=== PATIENT | male | born 1960 | race Caucasian/White ===

== ENCOUNTER 2020-06-15 09:32 | Day surgery (SDC) | payer BC, SELFPAY ==
[2020-06-15] VITALS (7 sets, daily range): BP systolic 105–117; BP diastolic 75–87; PULSE 81–100; RESP 16; TEMP 36.1–37.1; O2SAT 93–96; BMI 24.3
[2020-06-15] MEDS: Lactated Ringers 1,000 ML 100 ML IV (10:03)
--- NOTE | 2020-06-15 10:31 | HP.PCM_ITS ---
History of Present Illness Date of Admission: 06/15/20 The patient is a 59 year old M who presents for screening colonoscopy. He has never had a colonoscopy. Past Medical/Surgical History - Planned Operation Planned Operative Procedure/s: colonoscopy Date of Operative Procedure: 06/15/20 Permit Signed: No S.O.S: No Is This Patient Having a Total Joint: No - Previous Hospitalizations/Surgeries HX Hospitalizations: No HX of Surgeries: abcess buttock, incision /drainage/local. wisdom teeth Any Problems With Anesthesia: No You/Your Family Experience Fever (Hyperthermia) With Anes: No Cholinesterase deficiency: No - Cardiovascular Hx Chest Pain within Last 2 months: No Hx of Irregular Heartbeat and/or Afib: No Hx Heart Attack: No Hx Congestive Heart Failure: No Hx Rheumatic Fever: No Hx Hypertension: Yes - states controlled with med Hx Internal Defibrillator: No Hx Pacemaker: No Hx Cardiac Catheterization: No Hx Cardiac Surgery/Stents/Etc.: No Hx Stress Test: No HX Edema: No Hx Pain in Legs when Walking/Leg Cramps: No - Respiratory Chronic Cough: No HX of Shortness of Breath: No - denies Hoarseness: No Hx Chronic Obstructive Pulmonary Disease (COPD): No Hx Asthma: No Hx Emphysema: No Hx Sleep Apnea: No Hx Oxygen Use at Home: No Hx Respiratory Tract Infection/Cold (presently): No Do You Snore Loudly (louder than talking or can be heard): Yes Do You Often Feel Tired/ Fatigued/ Sleepy Dring Daytime?: No Has Anyone Observed You Stop Breathing During Sleep?: No Result (for STOP score): Positive Hx Smoking: Yes - quit age 33 Smoking Status: Former smoker - Gastrointestinal Hx Gastroesophageal Reflux: Yes Controlled With Meds: Yes - otc,antacids as needed Hx Gastrointestinal Disorders: No Hx Gastrointestinal Bleed: No Hx Ulcer: No Hx Hiatal Hernia: No Difficulty Chewing/Swallowing: No Recent Onset of Swallowing Problems: No Special diet followed at home: No Hx Unplanned Weight Loss of 20#: No HX Unplanned Weight Gain of 20#: No - Neurological Hx Seizures: No HX Syncope/Blackout Spells/Unconsciousness: No Hx CVA/Stroke: No Hx Transient Ischemic Attacks (TIA): No Hx Multiple Sclerosis: No Hx Parkinson's Disease: No Hx Head/Neck Injury: No Hx Headaches: Yes - occas Hx Back Injury/Pain: Yes - occas lower back pain Recent Onset of Speech Difficulty: No Restless Legs: No Does patient have nerve stimulator: No - Blood Disorder Hx Leukemia: No Bleeding Tendencies: No Hx Deep Vein Thrombosis: No Hx High Cholesterol: No Blood Transmitted Disease: No Hx Hepatitis: No Hx Cirrhosis: No Hx Anemia: No Hx Blood Disorders: No - Genitourinary Hx Renal Disease: No - Musculoskeletal Hx Arthritis: No Hx Rheumatoid Arthritis: No Hx Gout: No Recent Onset of an Orthopedic Problem: No - Endocrine Hx Diabetes: No Thyroid Disease: No Hx Steroid Therapy: No - Psycho/Social Hx Substance Use: No Hx Alcohol Use: Yes - 1 drink/month Hx Anxiety: No Hx Depression: No Mental Illness: No Hx Dementia: No - Miscellaneous Hx Cancer: No Recent Exposure to Contagious Disease: No Active MRSA: No Hx of C-Diff: No Any Loose Teeth: No - crown Allergies No Known Allergies Allergy (Verified 06/15/20 09:53) - Discharge Is Pt Admitted From a Longterm, or a Half-Way: No Who Could Help: After D/C, Where Do you Plan to Go: Return Home - Physical Exam Vitals/I&O's: Vital Signs Temp Pulse Resp BP Pulse Ox 97.0 F L 100 16 115/79 96 06/15/20 09:53 06/15/20 09:53 06/15/20 09:53 06/15/20 09:53 06/15/20 09:53 Oxygen Delivery Method Room Air Weight: 184 lb 11.958 oz Body Mass Index (BMI) 24.3 General: Alert, Oriented x3 Lungs: Clear to auscultation Cardiovascular: Regular rate, Regular Rhythm, No murmurs Abdomen: Bowel Sounds Present, Soft, Non Tender, Non-Distended Current Medications Lactated Ringer's () 1,000 mls @ 100 mls/hr IV .Q10H DEN Last Admin: 06/15/20 10:03 Dose: 100 mls/hr Documented by: Assessment/Plan Assessment screening colonoscopy Plan: Colonoscopy Surgery Risks - Colonoscopy Risks Include but are not Limited To: Risks include but are not limited to: Bleeding, perforation requiring further surgery, inability to complete colonoscopy requiring barium enema.
--- NOTE | 2020-06-15 10:57 | OP.COLON_ITS ---
Patient Name: Je Gage Procedure Date: 06/15/2020 10:35 AM Date of : 1960 Age: 59 Procedure: Colonoscopy Indications: Screening for colorectal malignant neoplasm Providers: Bam Richter MD Referring MD: Trang Borden Medicines: See the Anesthesia note for documentation of the administered medications Patient Profile: This is a 59 year old male. Refer to note in patient chart for documentation of history and physical. Last Colonoscopy: none. The patient's first colonoscopy is today. Complications: No immediate complications. Procedure: Pre-Anesthesia Assessment: - Prior to the procedure, a History and Physical was performed, and patient medications and allergies were reviewed. The patient's tolerance of previous anesthesia was also reviewed. The risks and benefits of the procedure and the sedation options and risks were discussed with the patient. All questions were answered, and informed consent was obtained. Prior Anticoagulants: The patient has taken no previous anticoagulant or antiplatelet agents. ASA Grade Assessment: II - A patient with mild systemic disease. After reviewing the risks and benefits, the patient was deemed in satisfactory condition to undergo the procedure. After I obtained informed consent, the scope was passed under direct vision. Throughout the procedure, the patient's blood pressure, pulse, and oxygen saturations were monitored continuously. The colonoscope was introduced through the anus and advanced to the cecum, identified by appendiceal orifice and ileocecal valve. The colonoscopy was performed without difficulty. The patient tolerated the procedure well. The quality of the bowel preparation was good. Scope In: 10:42:09 AM Scope Out: 10:54:09 AM Total Procedure Duration Time 0 hours 12 minutes 0 seconds Findings: A few small-mouthed diverticula were found in the sigmoid colon. No biopsies or other specimens were collected for this exam. The exam was otherwise without abnormality on direct and retroflexion views. Impression: - Diverticulosis in the sigmoid colon. No specimens collected. - The examination was otherwise normal on direct and retroflexion views. Recommendation: - Discharge patient to home. - Resume previous diet. - Continue present medications. - Repeat colonoscopy in 10 years for screening purposes. - Return to primary care physician (date not yet determined). Procedure Code(s): --- Professional --- 19903, Colonoscopy, flexible; diagnostic, including collection of specimen(s) by brushing or washing, when performed (separate procedure) Diagnosis Code(s): --- Professional --- Z12.11, Encounter for screening for malignant neoplasm of colon K57.30, Diverticulosis of large intestine without perforation or abscess without bleeding CPT copyright 2017 [employer]. All rights reserved. The codes documented in this report are preliminary and upon kettle chipper review may be revised to meet current compliance requirements. MD Bam Villeda MD 06/15/2020 10:57:19 AM This report has been signed electronically. Number of Addenda: 0 Note Initiated On: 06/15/2020 10:35 AM
--- NOTE | 2020-06-15 10:58 | OP.CCLET_ITS ---
06/15/2020 [facility] Re : Colonoscopy procedure for Je Borden This procedure was performed on Monday, June 15, 2020. My impressions and recommendations are as follows: Impressions : - Diverticulosis in the sigmoid colon. No specimens collected. - The examination was otherwise normal on direct and retroflexion views. Recommendations : - Discharge patient to home. - Resume previous diet. - Continue present medications. - Repeat colonoscopy in 10 years for screening purposes. - Return to primary care physician (date not yet determined). My findings are described in the full procedure note, which is enclosed. If I can be of further assistance, please feel free to contact me at Doctor phone number(s): , Fax: [phone], Work: . Sincerely, MD Bam Villeda MD 06/15/2020 10:57:19 AM This report has been signed electronically.
== END 2020-06-15 12:00 | disposition home or self-care (01) ==
LOC: EN 09:35 → AC 09:36
PROVIDERS: Anesthesiology; PCP Family Medicine; Referring Provider Family Medicine; Visit Provider Surgery
PROC: 0DJD8ZZ Inspection of Lower Intestinal Tract, Via Natural or Artificial Opening Endoscopic (ICD-10-PCS; CPT 45378; principal; 2020-06-15 10:25)
DX: Z12.11 Encounter for screening for malignant neoplasm of colon (principal); Z11.59 Encounter for screening for other viral diseases; I10 Essential (primary) hypertension; Z87.891 Personal history of nicotine dependence; K57.30 Diverticulosis of large intestine without perforation or abscess without bleeding
CPT/HCPCS: 45378; 87635; C9803; J7120; J2405; U0003

== ENCOUNTER 2021-09-11 19:46 | Emergency (ER) | payer OTHER, BC, SELFPAY ==
[2021-09-11 19:47] VITALS: BP 172/98; PULSE 79; RESP 8; TEMP 36.8; O2SAT 98; BMI 26.1
--- NOTE | 2021-09-11 20:31 | EDS_ITS ---
HPI History of Present Illness Chief Complaint: Laceration Detail of Chief Complaint: Right external posterior ear laceration Informant: patient Onset/Context/Timing Onset: Today and Hours Current Severity: Mild Maximum Severity: Mild Associated Symptoms Associated Symptoms: Negative for Parasthesias, Weakness, Loss of function, I nability to ambulate, Loss of consciousness and Amnesia Narrative Narrative: Right external, posterior laceration from an injury that occurred at work. Last tetanus greater than 10 years ago. 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 This occurred within the last hour. No other injuries. Tetanus Immunization: >10 years Prior similar symptoms: No PFSH PFSH Home Medications cetirizine 10 mg PO DAILY 06/05/20 [History Last Taken Unknown] losartan 100 mg PO DAILY 06/05/20 [History Last Taken 06/15/20] [id number] K-lycop 1 ea PO DAILY 06/05/20 [History Last Taken Unknown] Allergy/AdvReac Type Severity Reaction Status Date / Time No Known Allergies Allergy Verified 09/11/21 19:49 Social History Smoking Status: Former smoker ROS ROS ED ROS Narrative Denies recent illness. Review of Systems ROS Unobtainable: Denies due to encephalopathy Constitutional Constitutional ED: Denies fever(s) Eyes Eyes: Denies change in vision ENT ENT ED: Denies ear pain Cardiovascular Cardiovascular: Denies chest pain Respiratory/Chest Respiratory/Chest: Denies dyspnea Gastrointestinal Gastrointestinal: Denies abdominal pain, diarrhea, nausea or vomiting Genitourinary Genitourinary ED: Denies dysuria Musculoskeletal Musculoskeletal: Denies myalgias Integumentary Denies rash Neurologic Neurologic: Denies headache(s) Psychiatric Psychiatric: Denies depression Endocrine Endocrinology: Denies polyuria Hematologic/Lymphatic Hematologic/Lymphatic: Denies easy bruising Allergic/Immunologic Allergic/Immunologic ED: Denies urticaria EXAM Physical Exam Narrative Exam Narrative: 10-year-old male no acute distress vital signs stable afebrile. H EENT exam unremarkable except superficial laceration right posterior ear approximately 2 to 3 inches in length. Mild oozing of blood. No involvement of the cartilage. Cleaned and closed using Dermabond. Patient tolerated procedure well. Otherwise exam normal. Lungs are clear. Heart regular rate and rhythm. Const Vital Signs: 09/11/21 19:47 Temperature 98.2 F Temperature Source Temporal Pulse Rate 79 Respiratory Rate 8 L Blood Pressure 172/98 H Blood Pressure Mean 122 Pulse Ox 98 Oxygen Delivery Method Room Air Positive well nourished and well developed; Negative for obese, cachectic, contractures or unkempt General Appearance ED: well developed and NAD; Negative for unkempt, cachectic or contractures Nutritional Appearance: Negative for cachectic or obese HEENT HEENT Narrative: Right lateral posterior ear with superficial laceration of 2 to 3 inches. Dermabond closure worked well. trauma and tenderness; Negative for atraumatic Eyes PERRL and EOMs intact bilaterally Neck full ROM General: Negative for tenderness Chest Wall inspection of chest normal and palpation of chest normal Resp normal respiratory effort and clear to auscultation bilaterally Auscultation: Negative for rales, rhonchi or wheezes Cardio regular rhythm, S1 normal heart sound, S2 normal heart sound and no murmurs Rate: regular rate GI normal to inspection, nondistended, normoactive bowel sounds, non-tender, non- distended and no masses Auscultation: normoactive bowel sounds Palpation: soft; Negative for tender Back/Spine normal to inspection Extremity normal to inspection and full ROM General Extremety ED: Negative for deformity, edema or tenderness General Extremity: Negative for deformity or edema Neuro oriented x3 Sensorium / Orientation: alert, oriented to person, oriented to place, oriented to time and orientation impaired Motor Exam: strength 5/5 throughout Psych mental status grossly normal and thought process normal Appearance: Negative for unkempt Mood & Affect: Negative for depressed or tearful Skin no rashes or lesions noted and No no wounds Wounds: wounds noted PROC Procedures Lacerations Right ear laceration: Length: 2.5 in Depth: Skin Shape: Linear Prep: Sterile Conditions Laceration repair: Wound explored Comment: Closed using Dermabond. Wound was cleaned prior to that. MDM MDM MDM Narrative Medical decision making narrative: Worker's Comp. injury right ear. Superficial laceration. Dermabond closure. Tetanus updated. Discharge Plan Triage Chief Complaint: Laceration ED Provider: Theo Mai Dx/Rx/DC Orders Clinical Impression: Encounter related to worker's compensation claim, Laceration of ear, right, simple Instructions: ED Laceration, Face: Skin Glue Prescriptions: No Action cetirizine 10 MG tablet 10 mg PO DAILY RF: 0 losartan 100 MG tablet 100 mg PO DAILY RF: 0 [id number]-[id number]-[id number]-vit K-lycop 1 EACH tablet 1 ea PO DAILY RF: 0 Primary Care Provider: Trang Borden Referrals: [facility] [GROUP OF PHYSICIANS] - As Needed Trang Borden, KELLYC [Primary Care Provider] - Activity Restrictions/Additional Instructions: Wound clean. The skin glue will come off on its own. Do not take it off earlier pick at it. Any signs of infection such as swelling, pus or redness return. Your tetanus is up-to-date for the next 10 years. Disposition Disposition: Home, Self Care
[2021-09-11] MEDS: Diphth,Pertuss(Acell),Tet Vac 0.5 ML Vial IM (20:53)
== END 2021-09-11 21:20 | disposition home or self-care (01) ==
LOC: ED 20:54
PROVIDERS: Emergency Provider Emergency Medicine; PCP Family Medicine; Visit Provider Emergency Medicine
DX: S01.311A Laceration without foreign body of right ear, initial encounter (principal); Z87.891 Personal history of nicotine dependence; W22.8XXA Striking against or struck by other objects, initial encounter; Y93.9 Activity, unspecified; Y92.9 Unspecified place or not applicable
CPT/HCPCS: 12014; 90471; 90715; 99283

== ENCOUNTER 2024-08-12 00:08 | Inpatient (IN) | payer BC, SELFPAY ==
[2024-08-12] VITALS (21 sets, daily range): BP systolic 125–182; BP diastolic 68–85; PULSE 55–72; RESP 12–62; TEMP 36.3–37.1; O2SAT 95–99; BMI 24.2; BMI 24.4
--- NOTE | 2024-08-12 00:30 | RAD_ITS ---
EXAM: XR CHEST, 2 VIEWS CLINICAL INDICATION: chest pain TECHNIQUE: Frontal and lateral views of the chest. COMPARISON: No relevant prior studies available. FINDINGS: LUNGS AND PLEURAL SPACES: The lungs appear mildly hyperinflated with mildly prominent retrosternal clear space. No convincing infiltrate or effusion. No pneumothorax. HEART: Unremarkable. Cardiac silhouette not enlarged. MEDIASTINUM: Central airways and mediastinal contour are unremarkable. BONES/JOINTS: Unremarkable. No acute fracture. SOFT TISSUES: Unremarkable. VASCULATURE: Mild peripheral calcification of the aortic arch. RAD/Chest PA and Lateral IMPRESSION: Mild pulmonary hyperinflation. No convincing acute findings. Electronically Signed: Rohini Quick MD at 2:12 EST ,
--- NOTE | 2024-08-12 00:30 | EKG12_ITS ---
Test Reason : CP Blood Pressure : */* mmHG Vent. Rate : 65 BPM Atrial Rate : 65 BPM P-R Int : 158 ms QRS Dur : 84 ms QT Int : 382 ms P-R-T Axes : 57 46 69 degrees QTcB Int : 397 ms Normal sinus rhythm Nonspecific ST and T wave abnormality Abnormal ECG Confirmed by BRIGHT GALLAGHER, TYRA ([id number]), advertising editor STEPHANIE FRAZIER ([id number]) on 08/13/2024 8:05:24 AM Referred By: Confirmed By: TYRA NOVOA MD
[2024-08-12 00:37] LABS: Absolute Lymphocyte Count 1.71 X10^3/uL (0.83-4.51); Absolute Neutrophil Count 4.4 X10^3/uL (2.0-7.7); Basophil# 0.04 X10^3/uL; Basophil% 0.6 % (0-1); Eosinophil# 0.28 X10^3/uL; Eosinophils% 3.9 % (0-5); Hematocrit 41.5 % (40-54); Hemoglobin 14.1 g/dL (13.0-16.5); Lymphocyte # 1.71 X10^3/ul (0.83-4.51); Lymphocyte % 23.8 % (19-41); Mean Corpuscular Hgb 33.2 pg (27.0-32.0); Mean Corpuscular Volume 97.6 fL (80-94); Mean Platelet Vol. 9.4 fl (6.2-12.0); Monocyte# 0.74 X10^3/uL; Monocyte% 10.3 % (0-10); NRBC Flagged by Analyzer 0 % (0-5); Neutrophil # 4.36 X10^3/uL (2.7-7.7); Neutrophil % 60.7 % (47-70); Platelet Count 189 K/mm3 (150-450); RBC Distribution Width CV 13.4 % (11.6-14.6); RBC Distribution Width SD 47.6 fl (35.1-43.9); Red Blood Count 4.25 M/mm3 (4.6-6.2); White Blood Count 7.2 K/mm3 (4.4-11.0)
[2024-08-12 00:50] LABS: D-Dimer Quantitative (DVT/PE) 0.27 FEU/ug/m (0.27-0.49)
[2024-08-12 00:56] LABS: Anion Gap 5 (5-15); BUN 19 mg/dL (7-18); Calcium,Total 8.7 mg/dL (8.5-10.1); Chloride 109 mmol/L (98-107); Creatinine, Serum 0.79 mg/dL (0.70-1.30); EST Glomerular Filtration Rate 105 mL/min (>60); Est Glom Filt Rate - Afr Amer 127 mL/min (>60); Estimated Creatinine Clearance 109.57 ml/min; Glucose 163 mg/dL (74-106); Magnesium 2.1 mg/dL (1.6-2.6); Potassium 3.6 mmol/L (3.5-5.1); Sodium Level 143 mmol/L (136-145); Troponin-I HS 63 pg/mL (3.0-78.0)
--- NOTE | 2024-08-12 01:33 | EKG12_ITS ---
Test Reason : REPEAT Blood Pressure : */* mmHG Vent. Rate : 69 BPM Atrial Rate : 69 BPM P-R Int : 158 ms QRS Dur : 86 ms QT Int : 410 ms P-R-T Axes : 56 47 61 degrees QTcB Int : 439 ms Normal sinus rhythm Normal ECG Confirmed by BRIGHT GALLAGHER, TYRA ([id number]), news editor STEPHANIE FRAZIER ([id number]) on 08/13/2024 8:06:05 AM Referred By: Confirmed By: TYRA NOVOA MD
[2024-08-12] MEDS: Nitroglycerin Oint 1 INCH PACKET TD (01:40)
[2024-08-12] MEDS: Aspirin 81 MG TAB.CHEW 324 MG PO (01:41)
--- NOTE | 2024-08-12 02:05 | EX.ED.DYSGE1 ---
HPI History of Present Illness Chief Complaint: Chest Pain Informant: patient and spouse/S.O. Narrative Narrative: Patient is a 63-year-old male with past medical history of hypertension. He states he was at home this evening around 630 when he noticed a chest pressure that encompassed the entire anterior chest with slight radiation into the right arm. He states that there is no nausea vomiting or diaphoresis but did feel slightly short of breath with the pressure sensation. He states the symptoms would last a few minutes and then resolve. He states that he was able to go to bed but then awoke with recurring symptoms that he thought were a little more intense in nature and with concern this could be cardiac he presents for evaluation. [facility] Medical History Calabrese's palsy Prediabetes Hypertension Home Medications ?Medication ?Instructions ?Recorded ?Last Taken ?Type cetirizine 10 mg tablet 10 mg PO DAILY allergy sx 06/05/20 08/12/24 History amlodipine 5 mg tablet 5 mg PO DAILY 08/12/24 08/12/24 History cholecalciferol (vitamin D3) 50 50 mcg PO DAILY 08/12/24 Unknown History mcg (2,000 unit) capsule (D3-2000) inulin-sorbitol 2 gram chewable tab PO 08/12/24 Unknown History tablet (Fiber Supplement (inulin)) omeprazole 40 mg capsule,delayed 40 mg PO DAILY 08/12/24 08/12/24 History release Allergy/AdvReac Type Severity Reaction Status Date / Time No Known Allergies Allergy Verified 08/12/24 00:15 Family History Other CVA (cerebral vascular accident) Social History Smoking Status: Former smoker ROS ROS ED Constitutional Constitutional ED: Denies chills or fever(s) Eyes Eyes: Denies blurry vision, change in vision or diplopia ENT ENT ED: Denies sore throat Cardiovascular Cardiovascular: Reports chest pain; Denies palpitations or racing heartbeat Respiratory/Chest Respiratory/Chest: Reports dyspnea; Denies cough Gastrointestinal Gastrointestinal: Denies abdominal pain, diarrhea, nausea or vomiting Genitourinary Genitourinary ED: Denies dysuria Musculoskeletal Musculoskeletal: Denies back pain Integumentary Denies rash Neurologic Neurologic: Denies headache(s) Hematologic/Lymphatic Hematologic/Lymphatic: Denies easy bleeding or easy bruising EXAM Physical Exam Const Vital Signs: 08/12/24 00:09 08/12/24 00:16 08/12/24 01:09 Temperature 98.8 F Temperature Source Temporal Pulse Rate 71 65 Respiratory Rate 14 14 Respiratory Effort Short of Breath Blood Pressure 182/68 H 136/74 H Blood Pressure Mean 106 94 Pulse Ox 97 98 Oxygen Delivery Method Room Air Room Air 08/12/24 01:40 08/12/24 02:00 08/12/24 03:00 Temperature Temperature Source Pulse Rate 65 59 L Respiratory Rate 12 13 Respiratory Effort Blood Pressure 146/77 H 137/73 H 134/71 H Blood Pressure Mean 94 92 Pulse Ox 97 96 Oxygen Delivery Method Room Air Room Air Positive well nourished and well developed General Appearance ED: well developed; Negative for pallor HEENT HEENT Narrative: Normocephalic atraumatic Eyes PERRL and EOMs intact bilaterally General Eye ED: Negative for scleral icterus Neck supple and no JVD Chest Wall palpation of chest normal Resp normal respiratory effort and clear to auscultation bilaterally Cardio regular rate and regular rhythm Rate: other Other Details: Heart is regular rate and rhythm without murmurs rubs or gallop Radial and carotid pulses are equal and symmetric No carotid bruit noted GI normal to inspection, nondistended, normoactive bowel sounds, non-tender, non-distended and no masses GI Narrative: No voluntary guarding or rigidity or pulsatile mass Auscultation: normoactive bowel sounds Palpation: soft Extremity normal to inspection Extremity Narrative: No asymmetric edema no pitting edema negative Homans' sign bilaterally Neuro oriented x3, CN's II-XII intact bilaterally and no sensory deficits noted Sensorium / Orientation: alert Motor Exam: strength 5/5 throughout Psych mental status grossly normal Skin no rashes or lesions noted and no wounds General Skin Exam: Negative for jaundice or pallor MDM MDM MDM Narrative Medical decision making narrative: Patient arrived to ER hypertensive but has a past medical history of this and otherwise vitals are stable. He reports chest pressure with slight radiation and therefore there is concern this could be acute coronary syndrome or cardiac dysrhythmia. He also reported a family history of blood clot and therefore there is concern that he may have a PE. There is also concern that he may have an infectious process such as pneumonia. Secondary to this a basic workup was obtained. The patient's chest x-ray revealed no signs of infection no pneumothorax or widened mediastinum to suggest dissection. Furthermore his D-dimer was normal going against PE or dissection. His initial troponin was 63 which is towards the upper limit of normal but his EKG did not show any obvious ischemic changes or dysrhythmia finding. The 2-hour troponin elevated to a value of 98. With the almost 30 point jump and his symptoms there is concern this is secondary to coronary artery disease as the elevated troponin cannot be blamed on accelerated hypertension PE or cardiac dysrhythmia. Secondary to this the case was discussed with die maker electronic Dr. Slaughter. The patient was given aspirin and placed on a nitroglycerin topical ointment. With this he only had 1 bout of short-lived chest discomfort in the ER and is currently pain-free. Dr. Slaughter recommends patient be placed on a heparin drip and admitted to the medical service with continued troponin trending and potentially further workup with a stress test and/or heart cath. Secondary to this the hospitalist was contacted who agrees to accept the patient. Plan of care was discussed with the patient and they are agreeable to it and he is remained hemodynamically stable in ER and is therefore safe for admission History & Record Review Discussion w/independent historian: Patient and Significant other Lab Data Attestation: I reviewed the patient's lab results. Labs: Laboratory Results - last 24 hr 08/12/24 08/12/24 08/12/24 00:22 02:52 03:41 WBC 7.2 RBC 4.25 L Hgb 14.1 Hct 41.5 MCV 97.6 H MCH 33.2 H MCHC 34.0 RDW Std Deviation 47.6 H RDW Coeff of Leslie 13.4 Plt Count 189 MPV 9.4 Immature Gran % (Auto) 0.700 Neut % (Auto) 60.7 Lymph % (Auto) 23.8 Ida % (Auto) 10.3 H Eos % (Auto) 3.9 Baso % (Auto) 0.6 Absolute Neuts (auto) 4.4 Absolute Lymphs (auto) 1.71 Nucleated RBC % 0 PT 13.4 INR 1.0 APTT 27.9 D-Dimer Quant (PE/DVT) 0.27 Sodium 143 Potassium 3.6 Chloride 109 H Carbon Dioxide 28.0 Anion Gap 5 BUN 19 H Creatinine 0.79 Estim Creat Clear Calc 109.57 Est GFR (MDRD) Af Amer 127 Est GFR (MDRD) Non-Af 105 BUN/Creatinine Ratio 24.0 H Glucose 163 H Calcium 8.7 Magnesium 2.1 Troponin I High Sens 63 98 H Radiography Diagnostic Testing: Clinical Impression(s) from Imaging Studies Chest X-Ray 08/12/24 00:30 IMPRESSION: Mild pulmonary hyperinflation. No convincing acute findings. Electronically Signed: Rohini Quick MD at 2:12 EST Reading Location ID and State: [facility] / [place] Tel , Service support , 2 view chest x-ray as interpreted by the emergency medicine physician reveals no acute infiltrate pneumothorax or pleural effusion Management Discussion w/another healthcare provider: Hospitalist and Senior Quality Control Inspector Discharge Plan Dx/Rx/DC Orders Clinical Impression: NSTEMI, initial episode of care, Essential hypertension Disposition Disposition: Acute Care Hospital [facility] Discharge Date/Time: 08/12/24 04:07
[2024-08-12 03:24] LABS: Troponin-I HS 98 pg/mL (3.0-78.0)
--- NOTE | 2024-08-12 03:47 | HP.PCM.HOS_ITS ---
HPI - General General Date of Admission: 08/12/24 Date of Service: 08/12/24 Chief Complaint: Chest Pain. HPI Narrative LUKE GIMENEZ, is a 63 M with a past medical history of essential hypertension; on amlodipine, history of prediabetes, former tobacco abuse, positive family history of CVA in his mother and sister, history of Calabrese's palsy, history of sigmoid diverticulosis, history of screening colonoscopy (2019), history of laceration posterior to the Right external ear while at work (2021) and OA who presents to [facility] ER complaining of chest pain. Mr. Gimenez reports his symptoms began approximately 18:30 hours yesterday evening when he noticed chest pressure while he was out a local holiday event with high winds and moderate exertion when he suddenly developed chest pain that was pressure-like and went across his entire anterior chest wall and was ~6/10 at the worst with radiation into his Right arm that initially improved with rest but then remained persistent without activity so he finally decided to come in for further evaluation and treatment. When pressed he admitted to exertional chest pain that was previously mild and self-resolving sporadically over the past few months so he did not seek medical attention at that time. He denies associated fever, chills, nausea, vomiting, diaphoresis, recent illness, recent medication changes or a personal history of CAD - but he did admit to mild SOB. In the ER he was noted to have a normal initial troponin of 63 pg/mL followed by an upwardly trending second troponin of 98 pg/mL and then a third that tony to 151 pg/mL consistent with suspected NSTEMI and he was then admitted to the PCU for ongoing care for a stay that is expected to extend beyond 2 midnights. [facility] Medical History Calabrese's palsy Prediabetes Hypertension Home Medications ?Medication ?Instructions ?Recorded ?Last Taken ?Type cetirizine 10 mg tablet 10 mg PO DAILY allergy sx 06/05/20 08/11/24 History amlodipine 5 mg tablet 5 mg PO DAILY BP 08/12/24 08/11/24 History cholecalciferol (vitamin D3) 50 50 mcg PO DAILY supplement 08/12/24 08/11/24 History mcg (2,000 unit) capsule (D3-1999) inulin-sorbitol 2 gram chewable 1 tab PO DAILY PRN GI health 08/12/24 08/11/24 History tablet (Fiber Supplement (inulin)) omeprazole 40 mg capsule,delayed 40 mg PO DAILY 08/12/24 08/12/24 History release Allergy/AdvReac Type Severity Reaction Status Date / Time No Known Allergies Allergy Verified 08/12/24 00:15 Family History Other CVA (cerebral vascular accident) Social History Smoking Status: Former smoker ROS ROS Narrative Review of Systems: Constitutional: Patient denies fever or chills. Eyes: Patient denies changes in vision or discharge from eyes. ENT: Patient denies runny nose, sore throat or ear pain. Resp: Patient denies shortness of breath or cough. CV: Patient admits to chest pain but he denies diaphoresis, palpitations or heart racing. GI: Patient denies abdominal pain, nausea, vomiting, diarrhea or constipation. : Patient denies dysuria or hematuria. MSK: Patient denies arthralgias or myalgias. Skin: Patient denies rash, abscess or jaundice. Psych: Patient denies symptoms of uncontrolled depression or anxiety. Neuro: Patient denies headache, paresthesias or focal neurologic deficits. Allergy: Patient denies lip swelling, tongue swelling or urticaria. Hematology: Patient denies easy bleeding or easy bruisability. Endocrinology: Patient denies polyuria, polydipsia or polyphagia. 14 point review of systems otherwise negative except for positives noted above in HPI. Vital Signs Vital Signs Vital Signs: 08/12/24 00:09 08/12/24 00:16 08/12/24 01:09 Temperature 98.8 F Temperature Source Temporal Pulse Rate 71 65 Respiratory Rate 14 14 Respiratory Effort Short of Breath Blood Pressure 182/68 H 136/74 H Blood Pressure Mean 106 94 Pulse Ox 97 98 Oxygen Delivery Method Room Air Room Air 08/12/24 01:40 08/12/24 02:00 08/12/24 03:00 Temperature Temperature Source Pulse Rate 65 59 L Respiratory Rate 12 13 Respiratory Effort Blood Pressure 146/77 H 137/73 H 134/71 H Blood Pressure Mean 94 92 Pulse Ox 97 96 Oxygen Delivery Method Room Air Room Air Weight Weight: 183 lb 6.793 oz Body Mass Index (BMI) 24.2 Physical Exam Const alert, oriented x3, no apparent distress, average body habitus and healthy appearing General Appearance: cooperative HEENT normocephalic, head/scalp atraumatic, hearing grossly normal bilaterally and moist oral mucous membranes Eyes PERRL and EOMs intact bilaterally Neck no lymphadenopathy and supple Resp normal respiratory effort, no retractions, no use of accessory muscles and clear to auscultation bilaterally Cardio regular rate and regular rhythm GI normal to inspection, nondistended, normoactive bowel sounds, soft to palpation, non-tender and non-distended Extremity normal to inspection, full ROM and no clubbing, cyanosis or edema Skin Skin Narrative: Patient has no evidence of rash, abscess or jaundice. Neuro oriented x3, CN's II-XII intact bilaterally, moves all extremities and no focal motor deficits Sensorium / Orientation: awake, alert, oriented to person, oriented to place and oriented to time Speech: speech normal Psych affect normal Results Medical Records Data Attestation: I reviewed the patient's medical records Lab / Micro Data Attestation: I reviewed the patient's lab results. 08/12/24 04:49 08/12/24 04:49 Labs: Laboratory Results - last 24 hr 08/12/24 00:22: WBC 7.2, RBC 4.25 L, Hgb 14.1, Hct 41.5, MCV 97.6 H, MCH 33.2 H, MCHC 34.0, RDW Std Deviation 47.6 H, RDW Coeff of Leslie 13.4, Plt Count 189, MPV 9.4, Immature Gran % (Auto) 0.700, Neut % (Auto) 60.7, Lymph % (Auto) 23.8, [place] % (Auto) 10.3 H, Eos % (Auto) 3.9, Baso % (Auto) 0.6, Absolute Neuts (auto) 4.4, Absolute Lymphs (auto) 1.71, Nucleated RBC % 0, D-Dimer Quant (PE/DVT) 0.27, Sodium 143, Potassium 3.6, Chloride 109 H, Carbon Dioxide 28.0, Anion Gap 5, BUN 19 H, Creatinine 0.79, Estim Creat Clear Calc 109.57, Est GFR (MDRD) Af Amer 127, Est GFR (MDRD) Non-Af 105, BUN/Creatinine Ratio 24.0 H, Glucose 163 H, Calcium 8.7, Magnesium 2.1, Troponin I High Sens 63 08/12/24 02:52: Troponin I High Sens 98 H Imaging Radiology Impression Chest X-Ray 08/12/24 00:30 IMPRESSION: Mild pulmonary hyperinflation. No convincing acute findings. Electronically Signed: Rohini Quick MD at 2:12 EST , Assessment & Plan Assessment/Plan (1) NSTEMI, initial episode of care: (2) Essential hypertension: (3) Prediabetes: (4) Tobacco abuse, in remission: (5) History of Calabrese's palsy: PLAN: Plan 1. Non-ST elevation [place]; evidenced by initial normal troponin of 63 pg/mL followed by a second upward trending troponin of 98 pg/mL - Admit to PCU. Continue aspirin and IV heparin begun in the ER plus add Plavix, statin and low- dose metoprolol. Serialize troponin. Check echocardiogram to evaluate LVEF. Give Tylenol as needed for [id number] (level 1-5/10) pain or fever. Give morphine IV as needed for severe (level 6-10/10) pain. Give Zofran IV as needed nausea and vomiting. Finally, we will consult [facility] see this patient on rounds in a.m. for further recommendations regarding [facility] this admission without appreciated in advance. 2. Essential hypertension; on amlodipine - Resume amlodipine as previous plus start low-dose metoprolol. 3. History of prediabetes; with hyperglycemia of 163 mg/dL present on admission - Check hemoglobin A1c to confirm prediabetic status. ADA/cardiac diet to start after [facility]. 4. Former tobacco abuse - Noted. 5. History of Calabrese's palsy - Noted with no active signs of recurrence. 6. Positive family history of CVA in his mother and sister - Noted. 7. History of sigmoid diverticulosis - Noted. 8. History of screening colonoscopy (2019) - Noted with no pathologic findings other than sigmoid diverticulosis. Patient was recommended to follow-up in 10 years to maintain routine surveillance. 9. History of laceration posterior to the Right external ear while at work (2021) - Noted. 10. OA - Give Tylenol as needed. 11. DVT prophylaxis - Patient already started on IV heparin for #1. Total time: Approximately (but not less than) 55 minutes. Charges/Coding Visit Charges Inpatient E&M: 37641 Init Hosp L2
[2024-08-12] MEDS: Heparin Injection (Vial) 5,000 UNIT/ML VIAL 4000 UNIT IV (03:50)
[2024-08-12] MEDS: HEPARIN/D5w 25,000 UNITS 25,000 UNITS/250 ML IV.SOLN. 10 UNITS CONT INF (03:51)
[2024-08-12 04:01] LABS: Prothrombin Time (Protime)PT. 13.4 SECONDS (11.7-14.9)
[2024-08-12 04:02] LABS: Partial Thromboplast Time 27.9 Seconds (24.1-36.2)
--- NOTE | 2024-08-12 04:11 | ECHOD_ITS ---
Reason For Study: s/p [place] Procedure This was a 2D Doppler, Color Flow transthoracic echocardiogram. The study was technically difficult. Echo done post heart cath. Exam performed portable in patient room. Left Ventricle Normal LV size. The left ventricular ejection fraction is 55 %. No regional wall motion abnormalities noted. Right Ventricle Normal RV size. Normal systolic function. Atria Normal left atrium. Normal right atrium. Mitral Valve Normal mitral valve. Mild-Moderate (1-2+) eccentric mitral valve insufficiency. Tricuspid Valve Normal tricuspid valve. Aortic Valve Trisinus/trileaflet aortic valve. Pulmonic Valve Normal pulmonic valve. Great Vessels Normal aortic root. The pulmonary artery is normal size. Inferior vena cava collapse with respiration. Pericardium/Pleural No pericardial effusion. MMode/2D Measurements & Calculations LVIDd: 3.8 cm IVSd: 1.1 cm LAV(MOD-bp): 48.5 ml LVIDs: 2.8 cm LVPWd: 1.0 cm LAV(MOD-bp) Indexed: 23.4 ml/m2 RVDd: 3.7 cm FS: 26.9 % LAV(MOD-sp2): 49.3 ml LAV(MOD-sp4): 42.2 ml SV(MOD-sp4): 45.9 ml SV(sp4-el): 50.2 ml LVAd ap4: 35.8 cm2 LVLd ap4: 8.6 cm SI(MOD-sp4): 22.1 ml/m2 EDV(MOD-sp4): 119.5 ml EDV(sp4-el): 126.3 ml LVAs ap4: 26.2 cm2 LVLs ap4: 7.7 cm ESV(MOD-sp4): 73.6 ml ESV(sp4-el): 76.1 ml EF(MOD-sp4): 38.4 % EF(sp4-el): 39.7 % LA A4 area: 17.3 cm2 LA dimension(2D): 3.7 cm RA A4 area: 19.4 cm2 TAPSE: 1.5 cm Time Measurements MV dec time: 0.19 sec Doppler Measurements & Calculations MV E max matt: 75.0 cm/sec Lat Peak E' Matt: 11.4 cm/sec Med Peak E' Matt: 8.2 cm/sec MV A max matt: 56.2 cm/sec E/E' lat: 6.5 E/E' med: 9.1 MV E/A: 1.3 MV V2 max: 78.0 cm/sec MV P1/2t max matt: 78.6 cm/sec Ao V2 max: 91.8 cm/sec MV max P.4 mmHg MV P1/2t: 63.4 msec Ao max P.4 mmHg MV V2 mean: 38.8 cm/sec Ao V2 mean: 64.3 cm/sec MV mean P.75 mmHg MV dec slope: 362.7 cm/sec2 Ao mean P.9 mmHg MV V2 VTI: 30.0 cm MVA(P1/2t): 3.5 cm2 Ao V2 VTI: 23.2 cm AV (velocity ratio): 0.82 LV V1 max: 76.6 cm/sec PA V2 max: 67.8 cm/sec LV V1 max P.3 mmHg LV V1 mean P.3 mmHg LV V1 mean: 53.1 cm/sec LV V1 VTI: 19.0 cm ECHO/Echo Complete Interpretation Summary Normal LV size. The left ventricular ejection fraction is 55 %. No regional wall motion abnormalities noted. Mild-Moderate (1-2+) eccentric mitral valve insufficiency. Ordering Physician: Je Stewart Performed By: Stef Malloy RCS
[2024-08-12 04:56] LABS: Hematocrit 39.3 % (40-54); Hemoglobin 13.5 g/dL (13.0-16.5); Mean Corp Hgb Conc 34.4 g/dL (32-36); Mean Corpuscular Volume 96.1 fL (80-94); Mean Platelet Vol. 9.4 fl (6.2-12.0); Platelet Count 175 K/mm3 (150-450); RBC Distribution Width CV 13.3 % (11.6-14.6); RBC Distribution Width SD 47.1 fl (35.1-43.9); Red Blood Count 4.09 M/mm3 (4.6-6.2); White Blood Count 7.1 K/mm3 (4.4-11.0)
[2024-08-12] MEDS: Atorvastatin Calcium 80 MG Tablet PO (05:24)
[2024-08-12 05:44] LABS: ALB/GLOB Ratio 1.1 RATIO (0.9-2.4); AST(SGOT) 15 U/L (15-37); Alanine Aminotransfer ALT/SGPT 32 U/L (16-61); Albumin, Serum 3.2 g/dL (3.2-5.0); Alkaline Phosphatase 89 U/L (45-117); Anion Gap 6 (5-15); BUN 18 mg/dL (7-18); BUN/Creat Ratio 28.3 RATIO (10-20); Calcium,Total 8.5 mg/dL (8.5-10.1); Chloride 112 mmol/L (98-107); Cholesterol 156 mg/dL (200); Creatinine, Serum 0.64 mg/dL (0.70-1.30); EST Glomerular Filtration Rate 136 mL/min (>60); Est Glom Filt Rate - Afr Amer 164 mL/min (>60); Estimated Creatinine Clearance 135.25 ml/min; Globulin 2.9 g/dL (2.2-4.2); Glucose 133 mg/dL (74-106); High Density Lipoprotein 46 mg/dL; Potassium 3.6 mmol/L (3.5-5.1); Protein, Total 6.1 g/dL (6.4-8.2); Sodium Level 140 mmol/L (136-145); Triglycerides 77 mg/dL; Troponin-I HS 151 pg/mL (3.0-78.0); Very Low Density Lipoprotein 15 mg/dL (5-40)
--- NOTE | 2024-08-12 07:30 | PCM.CONS.C ---
Assessment & Plan Assessment/Plan (1) NSTEMI, initial episode of care: PLAN: He does have evidence of a non-ST elevation myocardial infarction. The plan will be for him to undergo a cardiac catheterization this morning and depending on the findings further recommendations will be made. There is benefits alternatives of been explained to him he understands and agrees to proceed. In the meantime he will be treated as follows: Aspirin, Toprol XL 25 mg a day, High intensity statin. Addendum: 10 AM. Cardiac catheterization demonstrated severe triple-vessel disease with significant calcification involving the LAD, right coronary artery, and circumflex artery. The LAD does not appear to have good distal target. After discussion with the business office manager it is felt that it may be prudent to transfer him to a tertiary care facility to see whether he can have rotablation to the right coronary artery and possibly the circumflex arterial system. Arrangements will be made for the above. (2) Essential hypertension: PLAN: He will continue on his current medication for his blood pressure. An echocardiogram be performed to assess his ventricular function. HPI Consult Data Date of Consult: 08/12/24 HPI Narrative HPI Narrative: LUKE GIMENEZ, is a 63 M who presents to the emergency room with chest discomfort which she describes as a heaviness which had been going on over the last week or so. It did appear with exertion and then he also had some with rest. He was concerned about this and so presented to the emergency room in the emergency room and EKG was done which did not demonstrate any changes but he cardiac enzymes did demonstrate abnormalities. He does have a history of hypertension, prediabetes, but no hyperlipidemia. He was admitted on intravenous heparin and aspirin cardiology was called for further evaluation and management. [facility] Medical History Calabrese's palsy Prediabetes Hypertension Home Medications ?Medication ?Instructions ?Recorded ?Last Taken ?Type cetirizine 10 mg tablet 10 mg PO DAILY allergy sx 06/05/20 08/11/24 History amlodipine 5 mg tablet 5 mg PO DAILY BP 08/12/24 08/11/24 History cholecalciferol (vitamin D3) 50 50 mcg PO DAILY supplement 08/12/24 08/11/24 History mcg (2,000 unit) capsule (D3-2000) inulin-sorbitol 2 gram chewable 1 tab PO DAILY PRN GI health 08/12/24 08/11/24 History tablet (Fiber Supplement (inulin)) omeprazole 40 mg capsule,delayed 40 mg PO DAILY 08/12/24 08/12/24 History release Allergy/AdvReac Type Severity Reaction Status Date / Time No Known Allergies Allergy Verified 08/12/24 00:15 Family History Other CVA (cerebral vascular accident) Social History Smoking Status: Former smoker ROS Constitutional Constitutional: Denies fever(s) or weight loss Eyes Eyes: Reports systems reviewed and no addt'l complaints, except as documented ENT HEENT: Reports systems reviewed and no addt'l complaints, except as documented Cardiovascular Cardiovascular: Reports chest pain at rest and chest pain with activity; Denies dyspnea at rest, dyspnea on exertion, edema, palpitations or paroxysmal nocturnal dyspnea Respiratory/Chest Respiratory/Chest: Denies dyspnea on exertion, productive cough, shortness of breath at rest or shortness of breath with exertion Gastrointestinal Gastrointestinal: Denies change in bowel habits, nausea, vomiting or weight changes Genitourinary Genitourinary: Denies difficulty urinating Musculoskeletal Musculoskeletal: Denies joint stiffness or muscle weakness Integumentary Integumentary: Denies lesions Neurologic Neurologic: Denies dizziness or syncope Psychiatric Psychiatric: Denies anxiety Endocrine Endocrinology: Denies excessive sweating or fatigue Hematologic/Lymphatic Hematologic/Lymphatic: Denies anemia Allergic/Immunologic Allergic/Immunologic: Denies seasonal rhinorrhea Physical Exam Const alert, oriented x3 and no apparent distress General Appearance: cooperative HEENT hearing grossly normal bilaterally Head and Scalp: atraumatic Eyes EOMs intact bilaterally Neck General: normal visual inspection Chest inspection of chest normal and palpation of chest normal Resp normal respiratory effort Auscultation: clear to auscultation bilaterally Cardio regular rate, regular rhythm, S1 normal heart sound and S2 normal heart sound Jugular Venous Distention: JVD GI normal to inspection, nondistended, normoactive bowel sounds Extremity normal capillary refill and no pedal edema Peripheral Pulses: Yes pulses 2+ throughout and femoral pulses present Skin no rashes or lesions noted Neuro oriented x3 and CN's II-XII intact bilaterally Psych Appearance: grossly normal and appropriate Risk Stratification Risk Stratification Applicable: Yes Age >/= 65: No >/= 3 CAD Risk Factors (HTN, HLD, DM, family hx of CAD, or current smoker): Yes Aspirin Use in the Past 7 Days: No Severe Angina (>/= episodes in 24 hours): No EKG ST Changes >/= 0.5mm: No Positive Cardiac Marker: Yes ONELIA Risk Stratification Score: 2 ONELIA % Risk: 8% Risk Objective Data Vital Signs: Vital Signs Temp Pulse Resp BP Pulse Ox O2 Del Method 98.1 F 59 L 16 140/83 H 98 Room Air 08/12/24 04:19 08/12/24 04:19 08/12/24 04:19 08/12/24 04:19 08/12/24 04:19 08/12/24 04:40 Oxygen Delivery Method Room Air Weight: 185 lb 3.013 oz Body Mass Index (BMI) 24.4 Lab / Micro Data 08/12/24 04:49 08/12/24 04:49 Labs: Laboratory Results - last 24 hr 08/12/24 00:22: WBC 7.2, RBC 4.25 L, Hgb 14.1, Hct 41.5, MCV 97.6 H, MCH 33.2 H, MCHC 34.0, RDW Std Deviation 47.6 H, RDW Coeff of Leslie 13.4, Plt Count 189, MPV 9.4, Immature Gran % (Auto) 0.700, Neut % (Auto) 60.7, Lymph % (Auto) 23.8, [place] % (Auto) 10.3 H, Eos % (Auto) 3.9, Baso % (Auto) 0.6, Absolute Neuts (auto) 4.4, Absolute Lymphs (auto) 1.71, Nucleated RBC % 0, D-Dimer Quant (PE/DVT) 0.27, Sodium 143, Potassium 3.6, Chloride 109 H, Carbon Dioxide 28.0, Anion Gap 5, BUN 19 H, Creatinine 0.79, Estim Creat Clear Calc 109.57, Est GFR (MDRD) Af Amer 127, Est GFR (MDRD) Non-Af 105, BUN/Creatinine Ratio 24.0 H, Glucose 163 H, Calcium 8.7, Magnesium 2.1, Troponin I High Sens 63 08/12/24 02:52: Troponin I High Sens 98 H 08/12/24 03:41: PT 13.4, INR 1.0, APTT 27.9 08/12/24 04:49: WBC 7.1, RBC 4.09 L, Hgb 13.5, Hct 39.3 L, MCV 96.1 H, MCH 33.0 H, MCHC 34.4, RDW Std Deviation 47.1 H, RDW Coeff of Leslie 13.3, Plt Count 175, MPV 9.4, Sodium 140, Potassium 3.6, Chloride 112 H, Carbon Dioxide 23.0, Anion Gap 6, BUN 18, Creatinine 0.64 L, Estim Creat Clear Calc 135.25, Est GFR (MDRD) Af Amer 164, Est GFR (MDRD) Non-Af 136, BUN/Creatinine Ratio 28.3 H, Glucose 133 H, Calcium 8.5, Total Bilirubin 0.30, AST 15, ALT 32, Alkaline Phosphatase 89, Troponin I High Sens 151 H*, Total Protein 6.1 L, Albumin 3.2, Globulin 2.9, Albumin/Globulin Ratio 1.1, Triglycerides 77, Cholesterol 156, LDL Cholesterol 95, VLDL Cholesterol 15, HDL Cholesterol 46, TSH 2.100 Cardiology Labs/Tests 08/12/24 00:22: WBC 7.2, RBC 4.25 L, Hgb 14.1, Hct 41.5, MCV 97.6 H, MCH 33.2 H, MCHC 34.0, Plt Count 189, MPV 9.4, Immature Gran % (Auto) 0.700, Neut % (Auto) 60.7, Lymph % (Auto) 23.8, [place] % (Auto) 10.3 H, Eos % (Auto) 3.9, Baso % (Auto) 0.6, Absolute Neuts (auto) 4.4, Nucleated RBC % 0, D-Dimer Quant (PE/DVT) 0.27, Sodium 143, Potassium 3.6, Chloride 109 H, Carbon Dioxide 28.0, Anion Gap 5, BUN 19 H, Creatinine 0.79, Est GFR (MDRD) Af Amer 127, Est GFR (MDRD) Non-Af 105, BUN/Creatinine Ratio 24.0 H, Glucose 163 H, Calcium 8.7, Magnesium 2.1 08/12/24 03:41: PT 13.4, INR 1.0, APTT 27.9 08/12/24 04:49: WBC 7.1, RBC 4.09 L, Hgb 13.5, Hct 39.3 L, MCV 96.1 H, MCH 33.0 H, MCHC 34.4, Plt Count 175, MPV 9.4, Sodium 140, Potassium 3.6, Chloride 112 H, Carbon Dioxide 23.0, Anion Gap 6, BUN 18, Creatinine 0.64 L, Est GFR (MDRD) Af Amer 164, Est GFR (MDRD) Non-Af 136, BUN/Creatinine Ratio 28.3 H, Glucose 133 H, Calcium 8.5, Total Bilirubin 0.30, Triglycerides 77, Cholesterol 156, LDL Cholesterol 95, VLDL Cholesterol 15, HDL Cholesterol 46 Rhythm: EKG: ECHO: Stress Test: Cardiac Cath: PCI: CT Surgery: Holter monitor: EPS: PPM: CXR: Chest CT Scan: Radiography Diagnostic Testing: Radiology Impression Chest X-Ray 08/12/24 00:30 IMPRESSION: Mild pulmonary hyperinflation. No convincing acute findings. Electronically Signed: Rohini Quick MD at 2:12 EST ,
[2024-08-12] MEDS: Aspirin 81 MG TAB.CHEW PO (08:38)
[2024-08-12] MEDS: Loratadine 10 MG Tablet PO (08:39)
[2024-08-12] MEDS: Metoprolol Tartrate 25 MG Tablet 12.5 MG PO (08:39)
[2024-08-12] MEDS: amLODIPine 5 MG Tablet PO (08:40)
[2024-08-12] MEDS: Pantoprazole Sodium 40 MG Tablet PO (08:40)
[2024-08-12] MEDS: Clopidogrel Bisulfate 75 MG Tablet PO (08:40)
[2024-08-12] MEDS: Cholecalciferol (VIT D3) 25 MCG TABLET (1,000 UNITS) 50 MCG PO (08:40)
[2024-08-12 09:47] LABS: Hemoglobin A1c 5.8 % (3.8-5.6)
--- NOTE | 2024-08-12 10:08 | CASEMGMT ---
Insurance review for hospitals In-network with [place] [employer] insurance if transfer is recommended is as follows: [facility], [place], [facility], [place], [facility], [facility], [facility], [facility], [place], [facility]), and . Olga Orozco, Discharge Planning Asst.
--- NOTE | 2024-08-12 10:10 | CL.D_ITS ---
Patient Name: LUKE GIMENEZ Study Date: 08/12/2024 Performing: Ignacio Smith MD Ht: 73 inches 185.42 cm : 1960 Wt: 185.19 lbs 84 kg Age: 63 Gender: male BSA: 2.08 PROCEDURE(S) PERFORMED DC01-(22454)LHC/COR/LV CLINICAL PROFILE AND INDICATIONS Indications: New Onset Angina <= 2 months Heart Failure: None Stress/Imaging Stress/Image Study Performed: No CAD Presentations: Non-STEMI. Symptom onset Date/Time: 08/12/24 Time Not Available CONCLUSIONS Diffuse coronary artery disease with severe disease involving the left anterior descending artery and severe focal disease of the circumflex artery, and right coronary artery and a calcified vessel. Low normal ejection fraction. RECOMMENDATIONS Will recommend transfer to tertiary care facility for evaluation for possible PCI with rotablation to the circumflex artery and the right coronary artery. Surgical consultation should also be obtained. DESCRIPTION OF PROCEDURE The patient arrived to the procedure lab. The risks and benefits of the procedure as well as a full description of our services here and current unavailability of surgical backup were fully explained to the patient and/or their significant other prior to the catheterization. The Timeout was completed, verifying the correct patient and procedure. The patient's procedural site was prepped and draped in the usual fashion. Local anesthetic was given subcutaneously to right radial region with Lidocaine 2%. Using a modified Seldinger technique, arterial access was obtained via the right radial artery, a 6Fr sheath was inserted. Left Coronary Artery selective angiography was performed in multiple views using a 5 Fr. 4.0 [place] catheter. Right Coronary Artery selective angiography was then performed in multiple views using a 5 Fr. 4.0 [place] catheter. Left Ventriculography was performed in RÍOS projection using a 5 Fr. Pigtail catheter. LV to AO pullback pressures were then recorded.The arterial sheath was pulled and a TR Band was applied for hemostasis. 10cc of air CORONARY ANGIOGRAPHY DOMINANCE: Right Dominant LEFT HEART ASSESSMENT Left Ventricular Ejection Fraction: by LV Gram 50 % Anterior Hypokinesis - Mild Depressed Left Ventricular systolic function LEFT MAIN: Mild calcification LEFT ANTERIOR DESCENDING ARTERY: Medium size vessel with diffuse calcification moderate and mid 60 to 70% stenosis and distal long 70 to 80% stenosis. The first diagonal vessel is diffusely diseased in the second diagonal vessel is also moderately diffusely diseased. CIRCUMFLEX ARTERY: Nondominant vessel calcified with proximal focal 90% stenosis and a mildly diseased mid segment and a distal 90% stenosis. [id number] collaterals are seen filling the distal posterolateral vessel. RIGHT CORONARY ARTERY: Dominant vessel severely calcified with proximal eccentric complex 80 to 90% stenosis, mid 80% stenosis, mid to distal 50 to 60% stenosis, origin of the posterior descending artery with 60 to 70% stenosis and posterolateral vessel subtotally occluded. COLLATERAL FLOW: Collateral flow from Left to Right Collateral flow from Right to Left COMPLICATIONS No Complications PROCEDURE MEDICATIONS Fentanyl 50 mcg IV Versed 1 mg IV Versed 1 mg IV Oxygen: 2 L/min via nasal cannula Heparin given IA 08/12/2024 09:30:22 Verapamil 2.5mg, Ntg 100mcgs, 3000 units of Heparin given IA 08/12/2024 09:30:22 SUMMARY OF HEMODYNAMIC DATA Time AIR REST ECG 09:19:28 AO 138/63 (97) SA 09:47:06 LV 122/7, 13 09:56:22 LV 121/9, 16 09:56:30 LV 117/9, 15 09:57:04 LVp 117/10, 16 09:57:07 AOp 114/-22 (70) 09:57:14 Signed By Ignacio Smith MD On 08/12/2024 10:09:24 Ignacio Smith MD
--- NOTE | 2024-08-12 15:22 | PN.HOSP_ITS ---
Subjective Subjective Doing well, no issues overnight. Chest pain is improved though not completely resolved Objective Data Objective Data Vital Signs: Vital Signs Temp Pulse Resp BP Pulse Ox O2 Del Method 97.4 F L 64 16 140/85 H 97 Room Air 08/12/24 08:32 08/12/24 08:39 08/12/24 08:32 08/12/24 08:39 08/12/24 08:32 08/12/24 14:00 Oxygen Delivery Method Room Air Weight: 185 lb 3.013 oz Body Mass Index (BMI) 24.4 Intake & Output: Intake and Output for Last 24 Hours 08/11/24 08/12/24 08/13/24 03:59 03:59 03:59 Intake Total 686.5 / 686.5 Balance 686.5 / 686.5 Lab / Micro Data 08/12/24 04:49 08/12/24 04:49 Labs: Laboratory Results - last 24 hr 08/12/24 00:22: WBC 7.2, RBC 4.25 L, Hgb 14.1, Hct 41.5, MCV 97.6 H, MCH 33.2 H, MCHC 34.0, RDW Std Deviation 47.6 H, RDW Coeff of Leslie 13.4, Plt Count 189, MPV 9.4, Immature Gran % (Auto) 0.700, Neut % (Auto) 60.7, Lymph % (Auto) 23.8, Rapides % (Auto) 10.3 H, Eos % (Auto) 3.9, Baso % (Auto) 0.6, Absolute Neuts (auto) 4.4, Absolute Lymphs (auto) 1.71, Nucleated RBC % 0, D-Dimer Quant (PE/DVT) 0.27, Sodium 143, Potassium 3.6, Chloride 109 H, Carbon Dioxide 28.0, Anion Gap 5, BUN 19 H, Creatinine 0.79, Estim Creat Clear Calc 109.57, Est GFR (MDRD) Af Amer 127, Est GFR (MDRD) Non-Af 105, BUN/Creatinine Ratio 24.0 H, Glucose 163 H, H emoglobin A1c 5.8 H, Calcium 8.7, Magnesium 2.1, Troponin I High Sens 63 08/12/24 02:52: Troponin I High Sens 98 H 08/12/24 03:41: PT 13.4, INR 1.0, APTT 27.9 08/12/24 04:49: WBC 7.1, RBC 4.09 L, Hgb 13.5, Hct 39.3 L, MCV 96.1 H, MCH 33.0 H, MCHC 34.4, RDW Std Deviation 47.1 H, RDW Coeff of Leslie 13.3, Plt Count 175, MPV 9.4, Sodium 140, Potassium 3.6, Chloride 112 H, Carbon Dioxide 23.0, Anion Gap 6, BUN 18, Creatinine 0.64 L, Estim Creat Clear Calc 135.25, Est GFR (MDRD) Af Amer 164, Est GFR (MDRD) Non-Af 136, BUN/Creatinine Ratio 28.3 H, Glucose 133 H, Calcium 8.5, Total Bilirubin 0.30, AST 15, ALT 32, Alkaline Phosphatase 89, T roponin I High Sens 151 H*, Total Protein 6.1 L, Albumin 3.2, Globulin 2.9, Albumin/Globulin Ratio 1.1, Triglycerides 77, Cholesterol 156, LDL Cholesterol 95, VLDL Cholesterol 15, HDL Cholesterol 46, TSH 2.100 Radiography Diagnostic Testing: Radiology Impression Chest X-Ray 08/12/24 00:30 IMPRESSION: Mild pulmonary hyperinflation. No convincing acute findings. Electronically Signed: Rohini Quick MD at 2:12 EST Reading Location ID and State: [address] [place] [address] Tel , Service support , Echocardiogram 08/12/24 04:11 Interpretation Summary Normal LV size. The left ventricular ejection fraction is 55 %. No regional wall motion abnormalities noted. Mild-Moderate (1-2+) eccentric mitral valve insufficiency. Ordering Physician: Je Stewart Performed By: Stef Malloy RCS Physical Exam Narrative General: Alert, Oriented x3, Cooperative, No apparent distress HEENT: Atraumatic, PERRLA, EOMI, Normocephalic Oral: Moist Mucosa Neck: Supple, No JVD Lungs: Clear to auscultation, Normal air movement, No rhonchi, No wheeze, No rales Cardiovascular: Regular rate, Regular Rhythm, Normal S1, Normal S2, No murmurs Abdomen: Soft, Non Tender, Non-Distended, No Hepato-splenomegaly Extremities: No edema, Capillary Refill Less than 3 Seconds Skin: No rashes, No breakdown Musculoskeletal: No Tenderness to Palpation of Joints or Extremities Neurological: No focal neurological deficits, Motor Exam 5/5 strength throughout, Sensory exam intact to light touch and pain Psych/Mental Status: Normal Affect, Appropriate Assessment & Plan Assessment/Plan (1) NSTEMI, initial episode of care: (2) Essential hypertension: (3) Prediabetes: (4) Tobacco abuse, in remission: (5) History of Calabrese's palsy: PLAN: Plan 1. Non-STEMI/essential HTN ? Cardiac cath with triple-vessel disease, cardiology is assisting with transferring patient to be evaluated for possible bypass surgery ? Continue with medical management with Plavix, Lipitor, aspirin ? Echo with an EF of 55% ? Significant family history of vascular disease with strokes and heart attacks DVT: Heparin
[2024-08-12] MEDS: Metoprolol Tartrate 25 MG Tablet PO (21:19)
[2024-08-12] MEDS: Heparin Injection (Vial) 5,000 UNIT/ML VIAL 5000 UNIT SC (21:20)
[2024-08-13] VITALS (7 sets, daily range): BP systolic 104–131; BP diastolic 65–81; PULSE 59–65; RESP 16–18; TEMP 36.6–37; O2SAT 96–98
[2024-08-13] MEDS: Heparin Injection (Vial) 5,000 UNIT/ML VIAL 5000 UNIT SC (05:51)
[2024-08-13 06:29] LABS: Absolute Lymphocyte Count 1.46 X10^3/uL (0.83-4.51); Absolute Neutrophil Count 5.3 X10^3/uL (2.0-7.7); Basophil# 0.04 X10^3/uL; Basophil% 0.5 % (0-1); Eosinophil# 0.23 X10^3/uL; Hematocrit 44.4 % (40-54); Hemoglobin 15.1 g/dL (13.0-16.5); Lymphocyte # 1.46 X10^3/ul (0.83-4.51); Lymphocyte % 18.8 % (19-41); Mean Corpuscular Hgb 32.9 pg (27.0-32.0); Mean Corpuscular Volume 96.7 fL (80-94); Mean Platelet Vol. 9.4 fl (6.2-12.0); Monocyte# 0.74 X10^3/uL; Monocyte% 9.5 % (0-10); NRBC Flagged by Analyzer 0 % (0-5); Neutrophil # 5.25 X10^3/uL (2.7-7.7); Neutrophil % 67.7 % (47-70); Platelet Count 195 K/mm3 (150-450); RBC Distribution Width CV 13.3 % (11.6-14.6); RBC Distribution Width SD 47.3 fl (35.1-43.9); Red Blood Count 4.59 M/mm3 (4.6-6.2); White Blood Count 7.8 K/mm3 (4.4-11.0)
[2024-08-13 06:45] LABS: Anion Gap 4 (5-15); BUN 11 mg/dL (7-18); BUN/Creat Ratio 16.3 RATIO (10-20); Calcium,Total 8.8 mg/dL (8.5-10.1); Chloride 110 mmol/L (98-107); Creatinine, Serum 0.68 mg/dL (0.70-1.30); EST Glomerular Filtration Rate 126 mL/min (>60); Est Glom Filt Rate - Afr Amer 153 mL/min (>60); Estimated Creatinine Clearance 127.29 ml/min; Glucose 131 mg/dL (74-106); Potassium 3.8 mmol/L (3.5-5.1); Sodium Level 138 mmol/L (136-145)
[2024-08-13] MEDS: Metoprolol Tartrate 25 MG Tablet PO ×2 (08:52→21:27)
[2024-08-13] MEDS: Aspirin 81 MG TAB.CHEW PO (08:52)
[2024-08-13] MEDS: Cholecalciferol (VIT D3) 25 MCG TABLET (1,000 UNITS) 50 MCG PO (08:52)
[2024-08-13] MEDS: Loratadine 10 MG Tablet PO (08:52)
[2024-08-13] MEDS: Pantoprazole Sodium 40 MG Tablet PO (08:52)
[2024-08-13] MEDS: amLODIPine 5 MG Tablet PO (08:53)
--- NOTE | 2024-08-13 09:44 | PCM.PN.HOSP ---
Subjective Subjective Doing well, no issues overnight. Awaiting transfer Objective Data Objective Data Vital Signs: Vital Signs Temp Pulse Resp BP Pulse Ox O2 Del Method 98.3 F 64 16 130/69 H 98 Room Air 08/13/24 08:48 08/13/24 08:52 08/13/24 08:48 08/13/24 08:48 08/13/24 08:48 08/13/24 08:48 Oxygen Delivery Method Room Air Weight: 185 lb 3.013 oz Body Mass Index (BMI) 24.4 Intake & Output: Intake and Output for Last 24 Hours 08/12/24 08/13/24 08/14/24 03:59 03:59 03:59 Intake Total 986.5 / 986.5 Balance 986.5 / 986.5 Lab / Micro Data 08/13/24 05:26 08/13/24 05:26 Labs: Laboratory Results - last 24 hr 08/12/24 00:22: Hemoglobin A1c 5.8 H 08/13/24 05:26: WBC 7.8, RBC 4.59 L, Hgb 15.1, Hct 44.4, MCV 96.7 H, MCH 32.9 H, MCHC 34.0, RDW Std Deviation 47.3 H, RDW Coeff of Leslie 13.3, Plt Count 195, MPV 9.4, Immature Gran % (Auto) 0.500, Neut % (Auto) 67.7, Lymph % (Auto) 18.8 L, Cochran % (Auto) 9.5, Eos % (Auto) 3.0, Baso % (Auto) 0.5, Absolute Neuts (auto) 5.3, Absolute Lymphs (auto) 1.46, Nucleated RBC % 0, Sodium 138, Potassium 3.8, Chloride 110 H, Carbon Dioxide 24.0, Anion Gap 4 L, BUN 11, Creatinine 0.68 L, Estim Creat Clear Calc 127.29, Est GFR (MDRD) Af Amer 153, Est GFR (MDRD) Non-Af 126, BUN/Creatinine Ratio 16.3, Glucose 131 H, Calcium 8.8 Radiography Diagnostic Testing: Radiology Impression Echocardiogram 08/12/24 04:11 Interpretation Summary Normal LV size. The left ventricular ejection fraction is 55 %. No regional wall motion abnormalities noted. Mild-Moderate (1-2+) eccentric mitral valve insufficiency. Ordering Physician: Je Stewart Performed By: Stef Malloy RCS Physical Exam Narrative General: Alert, Oriented x3, Cooperative, No apparent distress HEENT: Atraumatic, PERRLA, EOMI, Normocephalic Oral: Moist Mucosa Neck: Supple, No JVD Lungs: Clear to auscultation, Normal air movement, No rhonchi, No wheeze, No rales Cardiovascular: Regular rate, Regular Rhythm, Normal S1, Normal S2, No murmurs Abdomen: Soft, Non Tender, Non-Distended, No Hepato-splenomegaly Extremities: No edema, Capillary Refill Less than 3 Seconds Skin: No rashes, No breakdown Musculoskeletal: No Tenderness to Palpation of Joints or Extremities Neurological: No focal neurological deficits, Motor Exam 5/5 strength throughout, Sensory exam intact to light touch and pain Psych/Mental Status: Normal Affect, Appropriate Assessment & Plan Assessment/Plan (1) NSTEMI, initial episode of care: (2) Essential hypertension: (3) Prediabetes: (4) Tobacco abuse, in remission: (5) History of Calabrese's palsy: PLAN: Plan 1. Non-STEMI/essential HTN ? Cardiac cath with triple-vessel disease, cardiology is assisting with transferring patient to be evaluated for possible bypass surgery ? Continue with medical management with Plavix, Lipitor, aspirin ? Echo with an EF of 55% ? Significant family history of vascular disease with strokes and heart attacks ? Awaiting transfer to [facility] for evaluation for open heart surgery DVT: Heparin Charges/Coding Visit Charges Inpatient E&M: 61266 Subs Hosp L2
--- NOTE | 2024-08-13 18:39 | DS.PCM_ITS ---
Providers Date of Admission: 08/12/24 Primary Care Physician: Trang Borden PA-C Consultations 08/12/24 04:11 Consult: Cardiology Routine Consulting Provider: Fenrie Slaughter Reason for Consult: Chest Pain EMERGENT Consult: No MD Notified: Yes Date Notified: 08/12/24 Time Notified: 03:49 Method of Notification: ED Physician Initiated Reason For Visit: NSTEMI Diagnosis Discharge Diagnosis (1) NSTEMI, initial episode of care: Status: Acute Code(s): I21.4 - Non-ST elevation (NSTEMI) myocardial infarction (2) Essential hypertension: Status: Acute Code(s): I10 - Essential (primary) hypertension (3) Prediabetes: Status: Acute Code(s): R73.03 - Prediabetes (4) Tobacco abuse, in remission: Status: Acute Code(s): F17.201 - Nicotine dependence, unspecified, in remission (5) History of Calabrese's palsy: Status: Acute Code(s): Z86.69 - Personal history of other diseases of the nervous system and sense organs Medications at Discharge Home Medications cetirizine 10 mg tablet 10 mg PO DAILY allergy sx 06/05/20 amlodipine 5 mg tablet 5 mg PO DAILY BP 08/12/24 cholecalciferol (vitamin D3) 50 mcg (2,000 unit) capsule (D3-2000) 50 mcg PO DAILY supplement 08/12/24 inulin-sorbitol 2 gram chewable tablet (Fiber Supplement (inulin)) 1 tab PO DAILY PRN GI health 08/12/24 omeprazole 40 mg capsule,delayed release 40 mg PO DAILY 08/12/24 Hospital Course Operations None Procedures 2-D Echocardiogram and Cardiac catheterization Summary of Care Provided Minutes Spent on Discharge: 36 Hospital Course: Per HPI: LUKE GIMENEZ, is a 63 M with a past medical history of essential hypertension; on amlodipine, history of prediabetes, former tobacco abuse, positive family history of CVA in his mother and sister, history of Calabrese's palsy, history of sigmoid diverticulosis, history of screening colonoscopy (2019), history of laceration posterior to the Right external ear while at work (2021) and OA who presents to [facility] ER complaining of chest pain. Mr. Gimenez reports his symptoms began approximately 18:30 hours yesterday evening when he noticed chest pressure while he was out a local holiday event with high winds and moderate exertion when he suddenly developed chest pain that was pressure-like and went across his entire anterior chest wall and was ~6/10 at the worst with radiation into his Right arm that initially improved with rest but then remained persistent without activity so he finally decided to come in for further evaluation and treatment. When pressed he admitted to exertional chest pain that was previously mild and self-resolving sporadically over the past few months so he did not seek medical attention at that time. He denies associated fever, chills, nausea, vomiting, diaphoresis, recent illness, recent medication changes or a personal history of CAD - but he did admit to mild SOB. In the ER he was noted to have a normal initial troponin of 63 pg/mL followed by an upwardly trending second troponin of 98 pg/mL and then a third that tony to 151 pg/mL consistent with suspected NSTEMI and he was then admitted to the PCU for ongoing care for a stay that is expected to extend beyond 2 midnights. Hospital Course: 1. Non-STEMI/essential HTN?63-year-old male presented to the hospital with intermittent chest pain. He was noted to have slightly increasing troponins with a peak to 151, however given his family history cardiology was consulted and elected to perform a cardiac catheterization. This demonstrated triple- vessel disease with multiple lesions in the 80 to 90% stenosis range. They recommended transfer to tertiary center for evaluation for open heart surgery. He was started on aspirin and Plavix as well as Lipitor. He also had an echo which demonstrated an EF of 55% but no obvious wall motion abnormality. I discussed the case with cardiology at [facility] who accepted him in transfer to [facility] and we received indication that he would be excepted this evening. I discussed with him and his family the plan for transfer today which they expressed understanding the risk benefits going and would like to go today. Will continue with Norvasc 5 mg daily as well as metoprolol 25 mg p.o. twice daily. Physical Exam Narrative General: Alert, Oriented x3, Cooperative, No apparent distress HEENT: Atraumatic, PERRLA, EOMI, Normocephalic Oral: Moist Mucosa Neck: Supple, No JVD Lungs: Clear to auscultation, Normal air movement, No rhonchi, No wheeze, No rales Cardiovascular: Regular rate, Regular Rhythm, Normal S1, Normal S2, No murmurs Abdomen: Soft, Non Tender, Non-Distended, No Hepato-splenomegaly Extremities: No edema, Capillary Refill Less than 3 Seconds Skin: No rashes, No breakdown Musculoskeletal: No Tenderness to Palpation of Joints or Extremities Neurological: No focal neurological deficits, Motor Exam 5/5 strength throughout, Sensory exam intact to light touch and pain Psych/Mental Status: Normal Affect, Appropriate Weight / BMI Weight Weight: 185 lb 3.013 oz Body Mass Index (BMI) 24.4 ABG / Lab / Microbiology Data 08/13/24 05:26 08/13/24 05:26 Laboratory: Laboratory Results - last 24 hr 08/13/24 05:26: WBC 7.8, RBC 4.59 L, Hgb 15.1, Hct 44.4, MCV 96.7 H, MCH 32.9 H, MCHC 34.0, RDW Std Deviation 47.3 H, RDW Coeff of Leslie 13.3, Plt Count 195, MPV 9.4, Immature Gran % (Auto) 0.500, Neut % (Auto) 67.7, Lymph % (Auto) 18.8 L, Mcmullen % (Auto) 9.5, Eos % (Auto) 3.0, Baso % (Auto) 0.5, Absolute Neuts (auto) 5.3, Absolute Lymphs (auto) 1.46, Nucleated RBC % 0, Sodium 138, Potassium 3.8, Chloride 110 H, Carbon Dioxide 24.0, Anion Gap 4 L, BUN 11, Creatinine 0.68 L, Estim Creat Clear Calc 127.29, Est GFR (MDRD) Af Amer 153, Est GFR (MDRD) Non-Af 126, BUN/Creatinine Ratio 16.3, Glucose 131 H, Calcium 8.8 D/C Instructions DC O2, CPAP, BIPAP Needs Additional Home O2 Discharge instructions: No DC home with Oxygen: No Meaningful Use Info Meaningful Use Meaningful Use Diagnoses (Choose all that apply): None applicable Ischemic Stroke Statin Dosing Therapy Reference: STATIN DOSE THERAPY REFERENCE: * Patients > 75 years receive moderate or high dose statin therapy. * Patients 75 years or YOUNGER should receive HIGH intensity statin dose unless contraindicated. You will be required to document reason for non-treatment if statin daily dose does not meet guidelines. HIGH DOSE STATIN THERAPY DAILY Atorvastatin > than or = to 40 mg Rosuvastatin > than or = to 20 mg Amlodipine + Atorvastatin > than or = to 2.5/40 mg Ezetimibe + Simvastatin 10/80 mg Simvastatin 80mg Discharge Plan Admission Admit Date/Time: 08/12/24 03:48 Attending Provider: Leo Smith Primary Care Provider: Trang Borden Consulting Providers: Fernie Slaughter; Luke Stewart Discharge Orders/Prescriptions Prescriptions: No Action cetirizine 10 MG tablet 10 mg PO DAILY amlodipine 5 mg tablet 5 mg PO DAILY omeprazole 40 mg capsule,delayed release(DR/EC) 40 mg PO DAILY cholecalciferol (vitamin D3) [D3-1999] 50 mcg (2,000 unit) capsule 50 mcg PO DAILY Fiber Supplement (inulin) 2 gram tablet,chewable 1 tab PO DAILY PRN Referrals / Follow Up: Trang Borden, PA-C [Primary Care Provider] - Charges/Coding Visit Charges Inpatient E&M: 85563 Disch Hosp >30min
[2024-08-13] MEDS: Atorvastatin Calcium 80 MG Tablet PO (21:27)
== END 2024-08-13 22:45 | disposition short-term general hospital (02) | DRG 282 ==
LOC: ED 03:52 → PCU 04:02
PROVIDERS: Admitting Provider Internal Medicine; Emergency Provider Emergency Medicine; PCP Family Medicine; Visit Provider Family Medicine
DX: I21.4 Non-ST elevation (NSTEMI) myocardial infarction (principal); F17.201 Nicotine dependence, unspecified, in remission; I10 Essential (primary) hypertension; K57.30 Diverticulosis of large intestine without perforation or abscess without bleeding; M19.90 Unspecified osteoarthritis, unspecified site; I25.10 Atherosclerotic heart disease of native coronary artery without angina pectoris; R73.03 Prediabetes; Z82.49 Family history of ischemic heart disease and other diseases of the circulatory system; Z82.3 Family history of stroke; Z86.69 Personal history of other diseases of the nervous system and sense organs; Z87.828 Personal history of other (healed) physical injury and trauma; Z79.899 Other long term (current) drug therapy
CPT/HCPCS: 36415; 71046; 80048; 80053; 80061; 83036; 83735; 84443; 84484; 85025; 85027; 85379; 85610; 85730; 93005; 93306; 93458; 99152; 99153; 99285; J7040; Q9957; Q9967; A4216; C1769; C1894

== ENCOUNTER → 2024-09-26 | Outpatient (CLI) | payer BC, SELFPAY ==
--- NOTE | 2024-09-26 14:06 | CR.HP_ITS ---
CR - History & Physical General Arrival date:: 09/26/24 Arrival time:: 14:06 Date of Referral:: 09/19/24 Date of CR Evaluation:: 09/26/24 Referring Physician: Dr. Smith Primary Diagnosis: CABG History of Present Cardiac Event Onset Date Coronary Artery Bypass Graft:: Yes Vessel: LEHMAN-LAD, SVG to PDA, SVG to diagonal, SVG to 1st obtuse marginal Medications Ambulatory Orders ?Medication ?Instructions ?Recorded cetirizine 10 mg tablet 10 mg PO DAILY allergy sx 06/05/20 cholecalciferol (vitamin D3) 50 50 mcg PO DAILY supplement 08/12/24 mcg (2,000 unit) capsule (D3-1999) omeprazole 40 mg capsule,delayed 40 mg PO DAILY 08/12/24 release aspirin 81 mg tablet,delayed 81 mg PO QDAY #90 tabs 09/19/24 release (Adult Low Dose Aspirin) atorvastatin 80 mg tablet 80 mg PO QDAY #90 tabs 09/19/24 clopidogrel 75 mg tablet (Plavix) 75 mg PO QDAY #90 tabs 09/19/24 metoprolol tartrate 25 mg tablet 25 mg PO BID #180 tabs 09/19/24 sennosides 8.6 mg-docusate sodium 1 tab-cap PO QHS 09/19/24 50 mg tablet (Senna with Docusate Sodium) Allergies Allergies No Known Allergies Allergy (Verified 09/19/24 09:36) Sleep Disorder Evaluation Hx of Sleep Apnea: Yes Do you snore loudly (louder than talking or can be heard through closed doors)?: Yes Do you often feel tired/ fatigued/ sleepy during daytime?: No Has anyone observed you stop breathing during sleep?: No History of Hypertension (for STOP score): Yes STOP Results: Positive Advanced Directives Advanced Directives Power of Division Director: Yes Living Will: Yes Advance Directives Information Provided: Yes Advance Directives on File: Yes DNR Order?:: No Past Medical History Covid-19 Screening Physicial Symptoms Other Clinical Concerns Exposure Risk Pertinent Comorbidities Has a serious heart condition:: Yes Past Medical Illness Past Medical History (Updated 09/20/24 @ 10:02 by Jie LANDRUM, PA) CAD (coronary artery disease) I25.10 LEHMAN to the LAD, SVG to the posterior descending, SVG to the diagonal, SVG to the first obtuse 08/19/2024 at [facility] Calabrese's palsy G51.0 Prediabetes R73.03 Hypertension I10 Past Surgical History Past Surgical History (Updated 09/09/24 @ 16:07 by Jie Chaves PA, PA) S/P CABG x 4 Z95.1 LEHMAN to the LAD, SVG to the posterior descending, SVG to the diagonal, SVG to the first obtuse 08/19/2024 at [facility] Family History Summary Family History (Updated 09/19/24 @ 10:13 by Jie LANDRUM, PA) Other CVA (cerebral vascular accident) Hypertension Social History Smoking History Smoking Status: Former smoker Years Smokin Packs Smoked per Day: 1.5 (stopped about 30 years ago) Alcohol Use Alcohol Usage: Yes (socially) Occupation Occupation (List type of work in comments):: Employed Hours worked per day:: 10 Social Environment Status Marital Status: Current Living Arrangements Living Environment:: Family Children How many children do you have?: 3 Do any of your children live nearby?: Yes Safety Do you feel safe in your surroundings?: Yes Assistance Do you need any assistance at home?: no Review of Systems Review of Systems Hints Review of Present Symptoms: Reports Angina, Fatigue, Heart Arrhythmia/Irregularities, Appetite - Normal, Appetite - Special Diet and Sleep - Normal; Denies Shortness of Breath at Rest, Shortness of Breath with Exertion, PVD, Operative Discomfort, Wound Healing, Dizziness/Lightheadedness or Sexual Changes Pain Is Patient Pain Free?: Yes Risk Factor Assessment Chief Complaint Chief Complaint: CABG Vital Signs Pulse Ox: 98 Blood Pressure: 132/83 Pulse Pulse Rate: 58 Stress Stress: Work-related and Home/Family Diabetes Nutrition Referral for Diabetes: No Obesity Height: 6 ft 1 in Weight:: 179 lb Weight in Pounds: 179.0 lbs Body Mass Index (BMI): 23.6 Nutritional Referral for Obesity: No Physical Inactivity Physical Inactivity: Reg Exercise 30 min/day Risk Stratification Risk Guidelines: Moderate Risk: Risk Factor for Smoking, Risk Factor for Dyslipidemia, Risk Factor for Diabetes, Risk Factor for Obesity, Risk Factor for Sedentary Lifestyle and Risk Factor for Depression and Highest Risk: Risk Factor for Hypertension For Smoking Smoking Risk Guidelines For Dyslipidemia Dyslipidemia Risk Guidelines For Diabetes Mellitus Diabetes Risk Guidelines For Obesity/Overweight Obesity/Overweight Risk Guidelines For Hypertension Hypertension Risk Guidelines For Sedentary Lifestyle Sedentary Lifestyle Risk Guidelines For Depression Depression Risk Guidelines Family History Family History (Updated 09/19/24 @ 10:13 by Jie Chaves PA, PA) Other CVA (cerebral vascular accident) Hypertension Motivation Motivation to Participate On a scale of 1 to 10, how prepared are you to commit to attending program?: 9 What do you see as barriers to successfully being able to complete the program?: nothing What do you see as the benefits of succesfully completing the program? In other words, what do you hope to get out of participating in the program?: more endurance, nutrition, get back to work Are there issues you are dealing with that will interfere with completing the program?: no Do you have a spouse or signficant other, family or friends who will help support you to complete the program?: yes
[2024-09-26 14:12] VITALS: BP 132/83; PULSE 58; O2SAT 98
--- NOTE | 2024-09-26 14:12 | CR.ITP_ITS ---
Diagnosis General Information Admitting Diagnosis: CABG Personal Learning Style:: Audio/Visual Barriers to Learning: No Barriers Stage of change r/t lifestyle modifications:: Contemplation Gave educational material for:: Treating Heart Disease, How The Heart Works, What it means to have Heart Disease, How Coronary Artery Disease is Diagnosed, Heart Procedures, What Heart Medications Do, Risk Factors & Modifications, Living an Active Life, Nutrition, Emotions & Heart Disease, Stress Management & Relaxation and Sleep Disorders & Heart Disease Education/Goals Cardiac Rehabilitation Goals Personal Goals: Initial Assessment: Improve management of stress and emotions, Improve energy level, Participate in home exercise program, Get back to work, or to resume activities faster, Improve knowledge of cardiac disease, Improve muscle strength and endurance, Improve diet and eating habits (eat healthier), Control risk factors (learn risk factor modification) and Other goal: Scale for measuring improvement of personal goals Diagnosis & Disease Process Outcomes/Goals: Pt IDs own risk factors & lifestyle modifications by Session 10, Verbalizes symptoms of angina & response by session 3., Pt independently manages and Other Additional Outcomes/Goals: Plan/Interventions: Assist Pt to ID & engage in lifestyle modification to reduce CVD risk, Instruct on individual risk factors, Review symptoms of angina & emergency actions, Review secondary diagnosis & identify educational needs. and Other see comment 30 day Reassessments:: Not Met 30 day Reassessments:: Not Met 30 day Reassessments:: Not Met 30 day Reassessments:: Not Met Final Reassessments:: Not Met Safety Referral to Physical Therapy: No Referral to [facility] Case Management: No Fall Risk Assessed:: Yes Assistive Devices:: None Exercise - Initial Assessment Visit Date of Eval: 09/26/24 (initial eval ) Mets: Pre-: >3 METS for 30 minutes by discharge, >5 METS for 30 minutes by discharge, >7 METS for 30 minutes by discharge and Unable to meet goal due to: (see comment below) Physician Prescribed Exercise Modalities: Treadmill, Schwinn Airdyne AD-7, SciFit Stepper, SciFit Pro-II Ergometer and SciFit Lateral [place] Frequency: 3x/week for 12 weeks [36 sessions] Intensity: 60-80% of age predicted maximum heart rate reserve Duration: 30 - 45 minutes Current METSs:: 3 Target Heart Rate:: 95-119 Resting Blood Pressure: 132/83 EKG Type: SR Outcomes & Goals Goals:: Verbalizes understanding of THR, RPE & goal METS by session 6, Documents in home exercise log/reports 30 min aerobic 5 day/wk by DC and Demonstrates accurate pulse taking by DC Intervention & Plan Exercise Program Goals: Instruct on personal THR & RPE, Instruct on MET level & personal MET goal, Show patient to take own pulse /validate performance until accurate and Instruct on home exercise Physical Activity Home Exercise Physical Activity - Home Exercise: Safe Exercise, Warm-up, Self-monitoring, Cool-Down, Home Exercise > 30 min Daily and Sitting Time <3 hours/daily Outcomes & Goals Outcomes/Goals: Demonstrates correct Warm-up/exercise Cool-Down (S3) if = 2.5 METs, Verbalizes symptoms of exercise intolerance by Session 3 (S3), Demonstrate safe equipment use (S3) & follows exercise prescrition (6) and Other: See below Intervention & Plan Plan/Intervention: Instruct warm-up & cool-down if exercising at > 2 METs, Instruct on symptoms of exercise intolerance & actions to take, Instruct & monitor on saf, Assess intial functional capacity & safety risk and Other See below Nutrition - Initial Assessment Program Goals Nutrition Program Goals Patient has diagnosis of Hyperlipidemia (ICD E78)?: No Visit Date of Eval: 09/26/24 (initial eval ) Cholesterol/Lipids (Other Core Measures) Determine presence & major risk factors that modify LDL goal: Cigarette smoking, Hypertension or hypertensive medication, Low HDL cholesterol <40 mg/dL*, Family history of premature CHD in Male < 55 years: female <65 yearsFa and Age men > 45 years; women >/= 55 years Outcomes/Goals: Pt IDs own risk factors & lifestyle modifications by Session 10, Verbalizes symptoms of angina & response by session 3., Pt independently manages and Other Additional Outcomes/Goals: Intervention/Plan: Advocate for lipid panel cholesterol medication if applicable, Instruct on personal lipid levels & lipid goals/NCEP guidelines, Instruct on cholesterol and Other additional plan/int Diabetes (Other Core Measures) Diabetes Type: Not Applicable (pre diabetic) Weight Mgt (Other Care) Height: 6 ft 1 in Weight:: 179 lb BMI: 23.6 Diagnosis Overweight/Obesity BMI> 30% ICD-10 E66: No Diagnosis High BMI/Morbid Obesity BMI> 35% ICD-10 Z68: No Outcomes/Goals: Pt sets, maintains & shows weight loss goal & trend during rehab and Other additional outcomes/goals Intervention/Plan: Instruct on ideal BMI & set weight loss goal w/patient, Assist pt to ID & incorporate diet changes for weight loss by S9, Refer to Structured Weight Loss program as appropriate and Encourage goal of using 250- 300dcal per session for weight loss Healthy Eating Habits Will attend diet classes:: Yes Outcomes/Goals:: Consume diet rich in vegs,fruits,whole grain/high fiber,fish,lean meat and Limit sat/trans fats,cholesterol & added salts & sugars Intervention/Plan:: Assess current eating habits Education Gave educational materials for:: Signs & symptoms of hypoglycemia, Signs & symptoms of hyperglycemia, Relate diabetes to coronary artery disease and Healthy eating Core - Initial Assessment Visit Date of Eval: 09/26/24 (initial eval ) Medication Compliance Preventative Medication(s):: Aspirin, Clopidogrel/P2Y12 inhibit, Statin/lipid and Beta marcus H/O mental health issues: depression, anxiety, or addiction?: No Doesn?t believe in the benefits of treatment?: No Believes medications are unnecessary or harmful?: No Has a concern about medication side effects?: No Expresses concern over the cost of medications?: No Outcomes/Goals: Verbalizes medications,desired effect & common side effects @ DC, Pt self-reports following medication regimen, Keeps card in wallet w/medications listed by DC and Other additional outcome/goals: Interventions/plans: Instruct on medication effects & side effects, Review medication list w/patient every two weeks, Instruct importance of taking meds as ordered & assist problem solving and Other additional Tobacco Use Tobacco Use: Non-smoker How long ago did you quit using tobacco products?: Greater than or equal to 6 months ago Outcomes/Goals: Smoking cessation achieved or maintained by discharge, Identify aids/strategies for achieving smoking cessation by session 6 and Other additional outcome/goals Interventions/plan: Instruct on effects of smoking & provide smoking cessation resource, Assist pt to set quit date & provide encouragement, Assist pt to develop strategies to achieve/maintain quit date, Assist pt w/nicotine replacement & medication for cessation success and Other additional plan/interventions Hypertension Hypertension Diagnosis:: Hypertension ICD-10 I10 Resting Blood Pressure:: 132/83 [place] [employer] Hypertension Guidelines Outcomes/Goals: Able to verbalize/achieve optimal blood pressure <130/80, Incorporates diet changes & exercise for blood pressure control by DC and Other additional outcomes/goals Interventions/plan: Instruct on optimal blood pressure, hypertension & medications, Instruct on effects of sodium, alcohol, stress, exercise &hypertension and Other additional plan/interventions Tobacco Cessation Referral Smoking Cessation Referral:: No Individual Education/Counseling:: No Education Schedule Given:: Yes Psychosocial - Initial Assess VIsit Date of Eval: 09/26/24 (initial eval ) History of previous Mental disease:: No Target Goals Target Goals Psychosocial Test Tool Used:: [place] QOL Cardiac and PHQ-9 Questionnaire phq-9 Severity Referral to Behavioral Health PS - Interventions: Yes: Attend Stress Management Classes Outcomes/Goals: See list Psychosocial Outcomes/Goals:: ID's personal stressors & 2 strategies to manage stress by discharge and Other Additional outcome/goals: Intervention/Plan: See List Interventions/Plan:: Assess stressors,coping strategies & signs of derpression on admission, Instruct/assist pt to develop coping & personal stress Mgt strategies, Refer to Behavioral Health if appropriate, Refer to Physician if appropriate, Instruct patient to recognize signs & symptoms of depression, Instruct patient to recog and Other additional plan/intervention Patient Health Questionnaire PHQ-9 Screening Initial Assessment: 1. Little interest or pleasure in doing things: Not at all 2. Feeling down, depressed, or hopeless: Not at all 3. Trouble falling or staying asleep, or sleeping too much: Several days 4. Feeling tired or having little energy: Several days 5. Poor appetite or overeating: Not at all 6. Feeling bad about yourself -- or that you are a failure or have let yourself or your family down: Several days 7. Trouble concentrating on things, such as reading the newspaper or watching television: Several days 8. Moving or speaking so slowly that other people could have noticed. Or the opposite - being so fidgety or restless that you have been moving around a lot more than usual: Several days 9. Thoughts that you would be better off , or of hurting yourself in some way: Not at all How difficult have these problems made it for you to do your work, take care of things at home, or get along with other people?: Somewhat difficult Total Score: 5 CECIL-Q SV Test Statements CAD is a disease of the arteries in the heart: False Examples of risk factors for heart disease: True Angina is chest pain or discomfort: True The benefits of resistance training include: True Eating more meat and dairy products: False Anti-platelet medications such as aspirin are important: I Don't Know The only effective way to manage stress: False An exercise warm-up slowly increases heart rate: True Prepared, processed foods usually have high sodium: True Depression is common after a heart attack: True The statin medications lower cholesterol: True To control blood pressure, lower the amount of sodium: True If someone gets chest discomfort during walking: I Don't Know Transfats are partially hydrogenated vegetable oils: True Sleep apnea that is not treated increases the risk: I Don't Know To control cholesterol, one should become a vegetarian: I Don't Know Someone knows if he/she is exercising at the right level: I Don't Know Diabetes cannot be prevented with exercise & health eating: I Don't Know Stress is a large risk for heart attack: I Don't Know A diet that can help lower blood pressure is rich in: True Total Score Total Correct Responses: 13 Self-Efficacy 6-Item Scale Initial Assessment: We would like to know how confident you are in doing certain activities. Please select your confidence level for: Fatigue Select Number: 7 Physical Discomfort or Pain Select Number: 7 Emotional Distress Select Number: 8 Other Symptoms or Health Problems Select Number: 7 Different Tasks and Activities Select Number: 8 Medication Select Number: 9 Total Score:: 7 Nutrition Survey Nutrition Survey Instructions Scoring Instructions Nutrition Survey Initial: Have you lost >10 lbs over the past 2 months without trying?: No Are you following a special diet at home for diabetes, low fat, or low salt?: No Are you interested in meeting with a dietitian for help understanding your diet?: Yes Do you eat less than 3 meals a day?: No Do you eat fatty meats (thompson, sausage, ribs, etc), fried foods, desserts, large amounts of salad dressings, margarine, butter, or cheese most days?: No Do you have food allergies? [Enter types in comment field]: No Do you eat in restaurants more than 3 times a week?: No Do you season food with salt, seasoning salt, or garlic salt?: No Do you used canned, boxed, frozen meals, or soups, seasoning packets?: No Total Score:: 1 Exercise - 30-day Assessment Physician Prescribed Exercise Modalities: Treadmill, [place] AD-7, SciFit Stepper, SciFit Pro-II Ergometer and SciFit Lateral Head Resident Exercise - 60-day Assessment Physician Prescribed Exercise Modalities: Treadmill, Schwinn Airdyne AD-7, SciFit Stepper, SciFit Pro-II Ergometer and SciFit Lateral Head Resident Exercise - 90-day Assessment Physician Prescribed Exercise Modalities: Treadmill, [employer] [place]irdyne AD-7, SciFit Stepper, SciFit Pro-II Ergometer and SciFit Lateral [place] Exercise - Final/Discharge Physician Prescribed Exercise Modalities: Treadmill, Schwinn Airdyne AD-7, SciFit Stepper, SciFit Pro-II Ergometer and SciFit Lateral Head Resident Frequency: 3x/week for 12 weeks [36 sessions] Intensity: 60-80% of age predicted maximum heart rate reserve Current METSs:: 3 Target Heart Rate:: 95-119 Nutrition - 30-Day Assessment Weight Mgt (Other Care) Height: 6 ft 1 in Weight:: 179 lb BMI: 23.6 Nutrition - 60-Day Assessment Weight Mgt (Other Care) Height: 6 ft 1 in Weight:: 179 lb BMI: 23.6 Core - Final Assessment Hypertension Resting Blood Pressure:: 132/83 [place] [employer] Hypertension Guidelines Core - 60-Day Assessment Hypertension Resting Blood Pressure:: 132/83 [place] [employer] Hypertension Guidelines Psychosocial - 30-Day Assess Target Goals Target Goals Referral to Behavioral Health PS - Interventions: Yes: Attend Stress Management Classes Psychosocial - 60-Day Assess Target Goals Target Goals Referral to Behavioral Health PS - Interventions: Yes: Attend Stress Management Classes Psychosocial - 90-Day Assess Target Goals Target Goals Referral to Behavioral Health PS - Interventions: Yes: Attend Stress Management Classes Psychosocial - Final Assessmen Target Goals Target Goals Referral to Behavioral Health PS - Interventions: Yes: Attend Stress Management Classes Nutrition - 90-Day Assessment Weight Mgt (Other Care) Height: 6 ft 1 in Weight:: 179 lb BMI: 23.6 Nutrition - Final Assessment Program Goals Patient has diagnosis of Hyperlipidemia (ICD E78)?: No Weight Mgt (Other Care) Height: 6 ft 1 in Weight:: 179 lb BMI: 23.6
[2024-09-26 14:17] VITALS: BP 132/83
[2024-09-26 14:23] VITALS: BMI 23.6
[2024-09-26 15:06] VITALS: BMI 23.6
== END | disposition home or self-care (01) ==
LOC: CR 14:02
PROVIDERS: PCP Family Medicine; Referring Provider Internal Medicine Cardiovascular Disease; Visit Provider Internal Medicine Cardiovascular Disease
DX: I25.10 Atherosclerotic heart disease of native coronary artery without angina pectoris (principal); I10 Essential (primary) hypertension; Z95.1 Presence of aortocoronary bypass graft; Z79.02 Long term (current) use of antithrombotics/antiplatelets; Z79.82 Long term (current) use of aspirin; Z79.899 Other long term (current) drug therapy; Z87.891 Personal history of nicotine dependence

== ENCOUNTER 2024-10-04 11:15 | Outpatient (RCR) | payer BC, SELFPAY ==
[2024-09-26 15:06] VITALS: BMI 23.6
== END 2024-10-04 23:59 ==
LOC: CR 11:15
PROVIDERS: PCP Family Medicine; Referring Provider Internal Medicine Cardiovascular Disease; Visit Provider Internal Medicine Cardiovascular Disease
DX: Z95.1 Presence of aortocoronary bypass graft (principal)

== ENCOUNTER → 2024-10-25 | Outpatient (CLI) | payer BC, SELFPAY ==
[2024-10-25 08:21] VITALS: BMI 23.6
[2024-10-25 09:30] LABS: AST(SGOT) 22 U/L (15-37); Alanine Aminotransfer ALT/SGPT 41 U/L (16-61); Albumin, Serum 3.7 g/dL (3.2-5.0); Alkaline Phosphatase 93 U/L (45-117); Bilirubin, Direct 0.19 mg/dL (0.00-0.30); Cholesterol 101 mg/dL (200); Globulin 3.6 g/dL (2.2-4.2); High Density Lipoprotein 47 mg/dL; Protein, Total 7.3 g/dL (6.4-8.2); Triglycerides 62 mg/dL; Very Low Density Lipoprotein 12 mg/dL (5-40)
== END | disposition home or self-care (01) ==
LOC: LAB 08:22
PROVIDERS: PCP Family Medicine; Referring Provider Physician Assistant Medical; Visit Provider Physician Assistant Medical
DX: Z95.1 Presence of aortocoronary bypass graft (principal)
CPT/HCPCS: 36415; 80061; 80076

== ENCOUNTER 2024-11-01 11:15 | Outpatient (RCR) | payer BC, SELFPAY ==
[2024-09-26 15:06] VITALS: BMI 23.6
--- NOTE | 2024-10-25 08:07 | PCM.CR.ITP ---
Exercise - Initial Assessment Visit Session #:: 11 Physician Prescribed Exercise Modalities: Treadmill, SciFit Stepper and SciFit Lateral Health Informatics Specialist Nutrition - Initial Assessment Weight Mgt (Other Care) Height: 6 ft 1 in Weight:: 178 lb 8 oz BMI: 23.5 Psychosocial - Initial Assess Target Goals Target Goals Referral to Behavioral Health PS - Interventions: Yes: Attend Stress Management Classes Patient Health Questionnaire PHQ-9 Screening 30-Day Re-eval Assessment: 1. Little interest or pleasure in doing things: Not at all 2. Feeling down, depressed, or hopeless: Not at all 3. Trouble falling or staying asleep, or sleeping too much: Several days 4. Feeling tired or having little energy: Several days 5. Poor appetite or overeating: Not at all 6. Feeling bad about yourself -- or that you are a failure or have let yourself or your family down: Not at all 7. Trouble concentrating on things, such as reading the newspaper or watching television: Several days 8. Moving or speaking so slowly that other people could have noticed. Or the opposite - being so fidgety or restless that you have been moving around a lot more than usual: Several days 9. Thoughts that you would be better off , or of hurting yourself in some way: Not at all How difficult have these problems made it for you to do your work, take care of things at home, or get along with other people?: Somewhat difficult Total Score: 4 Self-Efficacy 6-Item Scale 30-Day Re-eval Assessment: We would like to know how confident you are in doing certain activities. Please select your confidence level for: Fatigue Select Number: 7 Physical Discomfort or Pain Select Number: 7 Emotional Distress Select Number: 8 Other Symptoms or Health Problems Select Number: 7 Different Tasks and Activities Select Number: 8 Medication Select Number: 9 Total Score:: 7 Nutrition Survey Nutrition Survey Instructions Scoring Instructions Exercise - 30-day Assessment Visit Date of Eval: 10/25/24 Session #:: 11 Physician Prescribed Exercise Modalities: Treadmill, SciFit Stepper and SciFit Lateral Health Informatics Specialist Frequency: 3x/week for 12 weeks [36 sessions] Intensity: 60-80% of age predicted maximum heart rate reserve Duration: 30 - 45 minutes Current METSs:: 3.6 Target Heart Rate:: 95-119 Current RPE:: 12 Maximum Excercise HR:: 98 Resting Blood Pressure: 128/76 Maximum Exercise Blood Pressure: 148/98 EKG Type: NSR to ST with rare PVC Outcomes & Goals Goals:: Verbalizes understanding of THR, RPE & goal METS by session 6, Documents in home exercise log/reports 30 min aerobic 5 day/wk by DC, Demonstrates accurate pulse taking by DC and Other additional outcome/goals: see below Intervention & Plan Exercise Program Goals: Instruct on personal THR & RPE, Instruct on MET level & personal MET goal, Show patient to take own pulse /validate performance until accurate, Instruct on home exercise and Other additional plan/int Physical Activity Home Exercise Physical Activity - Home Exercise: Safe Exercise, Warm-up, Self-monitoring, Cool-Down, Home Exercise > 30 min Daily and Sitting Time <3 hours/daily Outcomes & Goals Outcomes/Goals: Demonstrates correct Warm-up/exercise Cool-Down (S3) if = 2.5 METs, Verbalizes symptoms of exercise intolerance by Session 3 (S3), Demonstrate safe equipment use (S3) & follows exercise prescrition (6) and Other: See below 30-day Reassessments 30 day Reassessments:: Progressing Reassessment Notes & Comments:: RPE explained to pt. Pt demonstrates understanding. Exercise - 60-day Assessment Physician Prescribed Exercise Modalities: Treadmill, SciFit Stepper and SciFit Lateral Health Informatics Specialist Exercise - 90-day Assessment Physician Prescribed Exercise Modalities: Treadmill, SciFit Stepper and SciFit Lateral [place] Exercise - Final/Discharge Physician Prescribed Exercise Modalities: Treadmill, SciFit Stepper and SciFit Lateral Health Informatics Specialist Nutrition - 30-Day Assessment Program Goals Nutrition Program Goals Patient has diagnosis of Hyperlipidemia (ICD E78)?: Yes Visit Date of Eval: 10/25/24 Session #:: 11 Cholesterol/Lipids (Other Core Measures) Determine presence & major risk factors that modify LDL goal: Cigarette smoking, Hypertension or hypertensive medication, Low HDL cholesterol <40 mg/dL*, Family history of premature CHD in Male < 55 years: female <65 yearsFa and Age men > 45 years; women >/= 55 years Outcomes/Goals: Pt IDs own risk factors & lifestyle modifications by Session 10, Verbalizes symptoms of angina & response by session 3., Pt independently manages and Other Additional Outcomes/Goals: Intervention/Plan: Advocate for lipid panel cholesterol medication if applicable, Instruct on personal lipid levels & lipid goals/NCEP guidelines, Instruct on cholesterol and Other additional plan/int Diabetes (Other Core Measures) Diabetes Type: Not Applicable Weight Mgt (Other Care) Height: 6 ft 1 in Weight:: 178 lb 8 oz BMI: 23.5 Diagnosis Overweight/Obesity BMI> 30% ICD-10 E66: No Diagnosis High BMI/Morbid Obesity BMI> 35% ICD-10 Z68: No Outcomes/Goals: Pt sets, maintains & shows weight loss goal & trend during rehab and Other additional outcomes/goals Intervention/Plan: Instruct on ideal BMI & set weight loss goal w/patient, Assist pt to ID & incorporate diet changes for weight loss by S9, Refer to Structured Weight Loss program as appropriate, Encourage goal of using 250-300dcal per session for weight loss and Other additional plan/interventions Healthy Eating Habits Will attend diet classes:: Yes Outcomes/Goals:: Consume diet rich in vegs,fruits,whole grain/high fiber,fish,lean meat, Limit sat/trans fats,cholesterol & added salts & sugars and Other additional outcome/goals: Intervention/Plan:: Assess current eating habits and Other Additional plan/interventions 30-day Reassessments:: Progressing Reassessment Notes & Comments:: Pt is attending nutrition class this week. Low sodium heart healthy diet encouraged. Pt demonstrates understanding. Education Gave educational materials for:: Signs & symptoms of hypoglycemia, Signs & symptoms of hyperglycemia, Relate diabetes to coronary artery disease and Healthy eating Nutrition - 60-Day Assessment Weight Mgt (Other Care) Height: 6 ft 1 in Weight:: 178 lb 8 oz BMI: 23.5 Core - 30-Day Assessment Visit Date of Eval: 10/25/24 Session #:: 11 Medication Compliance Preventative Medication(s):: Aspirin, Clopidogrel/P2Y12 inhibit, Statin/lipid and Beta marcus H/O mental health issues: depression, anxiety, or addiction?: No Doesn?t believe in the benefits of treatment?: No Believes medications are unnecessary or harmful?: No Has a concern about medication side effects?: No Expresses concern over the cost of medications?: No Outcomes/Goals: Verbalizes medications,desired effect & common side effects @ DC, Pt self-reports following medication regimen, Keeps card in wallet w/medications listed by DC and Other additional outcome/goals: Interventions/plans: Instruct on medication effects & side effects, Review medication list w/patient every two weeks, Instruct importance of taking meds as ordered & assist problem solving and Other additional Tobacco Use Tobacco Use: Non-smoker Hypertension Hypertension Diagnosis:: Hypertension ICD-10 I10 Resting Blood Pressure:: 128/76 [place] [employer] Hypertension Guidelines Peak Exercise Blood Pressure:: 148/98 Outcomes/Goals: Able to verbalize/achieve optimal blood pressure <130/80, Incorporates diet changes & exercise for blood pressure control by DC and Other additional outcomes/goals Interventions/plan: Instruct on optimal blood pressure, hypertension & medications, Instruct on effects of sodium, alcohol, stress, exercise &hypertension and Other additional plan/interventions 30 day Reassessments:: Progressing Reassessment Notes & Comments:: Pt's BP's have been within AHA normal limits on most days. Will continue to monitor and send report to his physician if necessary. Tobacco Cessation Referral Smoking Cessation Referral:: No Individual Education/Counseling:: No Education Schedule Given:: Yes Psychosocial - 30-Day Assess VIsit Date of Eval: 10/25/24 Session #:: 11 History of previous Mental disease:: No Target Goals Target Goals Psychosocial Test Tool Used:: Geostellar QOL Cardiac and PHQ-9 Questionnaire phq-9 Severity Referral to Behavioral Health PS - Interventions: Yes: Attend Stress Management Classes Outcomes/Goals: See list Psychosocial Outcomes/Goals:: ID's personal stressors & 2 strategies to manage stress by discharge and Other Additional outcome/goals: Intervention/Plan: See List Interventions/Plan:: Assess stressors,coping strategies & signs of derpression on admission, Instruct/assist pt to develop coping & personal stress Mgt strategies, Refer to Behavioral Health if appropriate, Refer to Physician if appropriate, Instruct patient to recognize signs & symptoms of depression, Instruct patient to recog and Other additional plan/intervention 30-day Reassessments: 30 day Reassessments:: Met Reassessment Notes & Comments:: Pt denies any psychosocial issues at this time. Will continue to monitor. Psychosocial - 60-Day Assess Target Goals Target Goals Referral to Behavioral Health PS - Interventions: Yes: Attend Stress Management Classes Outcomes/Goals: See list Psychosocial Outcomes/Goals:: ID's personal stressors & 2 strategies to manage stress by discharge and Other Additional outcome/goals: Psychosocial - 90-Day Assess Target Goals Target Goals Referral to Behavioral Health PS - Interventions: Yes: Attend Stress Management Classes Psychosocial - Final Assessmen Target Goals Target Goals Referral to Behavioral Health PS - Interventions: Yes: Attend Stress Management Classes Nutrition - 90-Day Assessment Weight Mgt (Other Care) Height: 6 ft 1 in Weight:: 178 lb 8 oz BMI: 23.5 Nutrition - Final Assessment Weight Mgt (Other Care) Height: 6 ft 1 in Weight:: 178 lb 8 oz BMI: 23.5
[2024-10-25 08:11] VITALS: BP 128/76
[2024-10-25 08:22] VITALS: BP 128/76; BMI 23.5
== END 2024-11-01 23:59 ==
LOC: CR 11:15
PROVIDERS: PCP Family Medicine; Referring Provider Internal Medicine Cardiovascular Disease; Visit Provider Internal Medicine Cardiovascular Disease
DX: Z95.1 Presence of aortocoronary bypass graft (principal)
CPT/HCPCS: 93798; 97802

== ENCOUNTER 2024-11-18 11:15 | Outpatient (RCR) | payer BC, SELFPAY ==
[2024-10-25 08:22] VITALS: BMI 23.5
[2024-11-02 00:57] VITALS: BP 128/76
== END 2024-12-02 23:59 ==
LOC: CR 11:15
PROVIDERS: PCP Family Medicine; Referring Provider Internal Medicine Cardiovascular Disease; Visit Provider Internal Medicine Cardiovascular Disease
DX: Z95.1 Presence of aortocoronary bypass graft (principal)
CPT/HCPCS: 93798; 97803

== ENCOUNTER → 2024-11-29 | Outpatient (CLI) | payer BC, SELFPAY ==
[2024-10-25 08:22] VITALS: BMI 23.5
== END | disposition home or self-care (01) ==
LOC: SL 19:57
PROVIDERS: PCP Family Medicine; Referring Provider Physician Assistant Medical; Visit Provider Physician Assistant Medical
DX: G47.30 Sleep apnea, unspecified (principal)
CPT/HCPCS: 95810

== ENCOUNTER → 2025-01-25 | Outpatient (CLI) | payer BC, SELFPAY ==
[2024-10-25 08:22] VITALS: BMI 23.5
[2025-01-25 09:59] LABS: AST(SGOT) 32 U/L (<=37); Alanine Aminotransfer ALT/SGPT 40 U/L (<=46); Albumin, Serum 4.5 g/dL (3.4-4.8); Alkaline Phosphatase 77 U/L (40-129); Bilirubin, Direct 0.31 mg/dL (0.00-0.30); Cholesterol 121 mg/dL (<=200); Globulin 2.5 g/dL (2.2-4.2); High Density Lipoprotein 50 mg/dL; Low Density Lipoprotein Calc. 60 mg/dL; Total Bilirubin 0.65 mg/dL (0.00-1.30); Triglycerides 58 mg/dL; Very Low Density Lipoprotein 12 mg/dL (5-40); cholesterol:hdl ratio screen 2.42
[2025-01-28 16:08] LABS: Lipoprotein A 19.8 nmol/L (<75.0)
== END | disposition home or self-care (01) ==
LOC: LAB 08:28
PROVIDERS: PCP Family Medicine; Referring Provider Physician Assistant Medical; Visit Provider Physician Assistant Medical
DX: E78.00 Pure hypercholesterolemia, unspecified (principal); I25.10 Atherosclerotic heart disease of native coronary artery without angina pectoris
CPT/HCPCS: 36415; 80061; 80076; 83695